=== PATIENT | female | born 1940 | race Caucasian/White ===

== ENCOUNTER → 2017-06-02 | Outpatient (CLI) | payer MEDICARE, BC ==
--- NOTE | 2017-06-02 18:09 | BD ---
EXAMINATION TYPE: MG DEXA axial skeleton. DATE OF EXAM: 06/02/2017 COMPARISON: 08/04/2013 CLINICAL HISTORY: 76-year-old female postmenopausal screening without HRT. Height: 65 IN Weight: 151 LBS FRAX RISK QUESTIONS: Alcohol (3 or more units per day): NO Family History (Parent hip fracture): NO Glucocorticoids (More than 3mos): NO (Ex: prednisone, prednisolone, methylprednisolone, dexamethasone, and hydrocortisone). History of Fracture in Adulthood: YES LEFT FOOT FX AGE 73 Secondary Osteoporosis: 1. Type 1 Diabetes: NO 2. Hyperthyroidism: NO 3. Menopause before 45: YES AGE 35 TOTAL HYST 4. Malnutrition: NO 5. Chronic liver disease: NO Rheumatoid Arthritis: NO Current Tobacco Use: NO RISK FACTORS HISTORY OF: Active: YES Diet low in dairy products/other sources of calcium: YES Postmenopausal woman: AGE 35 Take estrogen and/or progesterone medications: NOT NOW How long: ESTROGEN AGE 35 - 65 MEDICATIONS: Additional Medications: VIT D, CRESTOR, FENOFIBRATE, TRAMADOL, ASPIRIN, MULTI VIT, COLACE, LISINOPRIL EXAM MEASUREMENTS: Bone mineral densitometry was performed using the [employer] System. Bone mineral density as measured about the Lumbar spine is: ----- L1-L4(G/cm2): 0.987 T Score Values are as follows: ----- L2: -1.9 ----- L3: -1.5 ----- L4: -1.7 ----- L1-L4: -1.6 Bone mineral density has: Decreased -8.9% since study of: 08/04/2013 Bone mineral density about the R hip (g/cm2): 0.876 Bone mineral density about the L hip (g/cm2): 0.902 T Score values are as follows: -----R Neck: -1.2 -----L Neck: -1.0 -----R Total: -0.9 -----L Total: -1.1 Bone mineral density has: Decreased -7.2% since study of: 08/04/2013 IMPRESSION: Osteopenia (T Score between -2.5 and -1 as noted by T score values There is slightly increased risk of fracture and the patient may be considered for treatment. Re-Screen 2-5 years. NOTE: T-SCORE=SD OF THE YOUNG ADULT MEAN.
--- NOTE | 2017-06-03 11:26 | MM ---
Reason for exam: screening (asymptomatic). Last mammogram was performed 1 year and 2 months ago. History: Patient is postmenopausal. Family history of breast cancer in maternal cousin. Benign lumpectomy of the right breast, 2007. Took estrogen for 30 years beginning at age 35. Physical Findings: A clinical breast exam by your physician is recommended on an annual basis and results should be correlated with mammographic findings. MG 3D Screening Mammo W/Cad Bilateral CC and MLO view(s) were taken. Prior study comparison: April 10, 2016, bilateral MG 3d screening mammo w/cad. March 30, 2015, bilateral MG 3d diag mammo w/cad [facility]. There are scattered fibroglandular densities. Stable benign calcifications. There is no discrete abnormality. No significant changes when compared with prior studies. ASSESSMENT: Benign, BI-RAD 2 RECOMMENDATION: Routine screening mammogram of both breasts in 1 year.
== END | disposition home or self-care (01) ==
LOC: RADMAMWWP 14:58
PROVIDERS: ATTEND Family Medicine
DX: Z12.31 Encounter for screening mammogram for malignant neoplasm of breast (principal); M85.80 Other specified disorders of bone density and structure, unspecified site; Z78.0 Asymptomatic menopausal state
CPT/HCPCS: 77063; 77067; 77080

== ENCOUNTER 2017-07-06 11:17 | Emergency (ER) | payer MEDICARE, BC ==
[2017-07-06 11:29] VITALS: TEMP 97.7
[2017-07-06 12:27] LABS: Basophils % (A) 0 %; Eosinophils # (A) 0.1 k/uL (0-0.7); Eosinophils % (A) 3 %; HCT 36.5 % (34.0-46.0); HGB 12.5 gm/dL (11.4-16.0); Lymphocytes # (A) 1.2 k/uL (1.0-4.8); Lymphocytes % (A) 28 %; MCH 30.3 pg (25.0-35.0); MCHC 34.3 g/dL (31.0-37.0); MCV 88.4 fL (80.0-100.0); Mean Platelet Volume 6.9; Monocytes # (A) 0.2 k/uL (0-1.0); Monocytes % (A) 6 %; Neutrophils # (A) 2.6 k/uL (1.3-7.7); Neutrophils % (A) 61 %; Platelet Count 378 k/uL (150-450); RBC 4.13 m/uL (3.80-5.40); RDW 12.5 % (11.5-15.5); WBC 4.4 k/uL (3.8-10.6)
[2017-07-06 12:37] LABS: ALT 25 U/L (9-52); AST 27 U/L (14-36); Albumin 4.4 g/dL (3.5-5.0); Alkaline Phosphatase 33 U/L (38-126); Anion Gap 11 mmol/L; Blood Urea Nitrogen 22 mg/dL (7-17); Carbon Dioxide 26 mmol/L (22-30); Chloride 102 mmol/L (98-107); Glucose 142 mg/dL (74-99); Magnesium 1.9 mg/dL (1.6-2.3); Potassium 3.7 mmol/L (3.5-5.1); Sodium 139 mmol/L (137-145); Total Bilirubin 0.5 mg/dL (0.2-1.3); Total Protein 6.9 g/dL (6.3-8.2)
[2017-07-06 12:50] LABS: Creatine Kinase 49 U/L (30-135)
--- NOTE | 2017-07-06 12:53 | XR ---
EXAMINATION TYPE: XR chest 2V DATE OF EXAM: 07/06/2017 HISTORY: cough. REFERENCE: Previous study dated 05/24/2014. FINDINGS: The lungs are clear. Pleural spaces are clear. The heart is not enlarged. IMPRESSION: NO ACUTE INTRATHORACIC DISEASE.
[2017-07-06 13:03] LABS: Creatine Kinase MB 0.5 ng/mL (0.0-2.4); Troponin I <0.012 ng/mL (0.000-0.034)
[2017-07-06 13:50] LABS: Appearance,Urine Clear (Clear); Bilirubin,Urine Negative (Negative); Blood,Urine Negative (Negative); Color,Urine Light Yellow; Glucose,Urine (UA) Negative (Negative); Ketones,Urine Negative (Negative); Leukocyte Esterase,Urine Negative (Negative); Nitrite,Urine Negative (Negative); Protein,Urine Negative (Negative); Specific Gravity,Urine 1.008 (1.001-1.035); Urobilinogen,Urine <2.0 mg/dL (<2.0)
[2017-07-06] MEDS ORDERED: SODIUM CHLORIDE 0.9% 500 ML IV STA (13:53)
--- NOTE | 2017-07-06 13:59 | CT ---
EXAMINATION TYPE: CT brain wo con DATE OF EXAM: 07/06/2017 COMPARISON: NONE HISTORY: Hypertension CT DLP: 1121 mGycm Automated exposure control for dose reduction was used. FINDINGS: There are generalized changes of sulcal prominence and ventriculomegaly, compatible with mild atrophi c change. There is diffuse periventricular white matter lucency, compatible with chronic white matter ischemic change. There is no acute focal lesion, mass effect or midline shift identified. I do not s ee evidence of intracranial blood. Visualized portions of the paranasal sinuses and mastoids are clear. The bony calvarium is intact. 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 IMPRESSION: 1. NO ACUTE INTRACRANIAL ABNORMALITY. 2. ATROPHIC CHANGE. 3. CHRONIC WHITE MATTER ISCHEMIC CHANGE. 4. 1.6 CM P[place] REGION CYST.
--- NOTE | 2017-07-06 15:03 | ED ---
Recheck HPI - General Chief Complaint: Recheck/Abnormal Lab/Rx Stated Complaint: HYPERTENSION 157/107 Time Seen by Provider: 07/06/17 11:50 Source: patient, RN notes reviewed Mode of arrival: ambulatory Limitations: no limitations - History of Present Illness Initial Comments: This is a 77-year-old female history of hypertension states her blood pressure is been erratic or the past 2-3 days. She's been taking it and was seen in severity labile going up and going down. She has been taking increased doses of her medication. She also states she's been under a lot of stress lately. She denies any overt chest pain fevers chills nausea vomiting sweats or other symptoms upon arrival was noted to be improved - Related Data Home Medications Medication Instructions Recorded Confirmed Aspirin 81 mg PO DAILY 01/12/14 07/06/17 Docusate [Colace] 200 mg PO DAILY 01/12/14 07/06/17 Fenofibrate [Lofibra] 160 mg PO DAILY 01/12/14 07/06/17 Lisinopril [Zestril] 40 mg PO BID 01/12/14 07/06/17 Multivitamins, Thera [Multivitamin 1 tab PO DAILY 01/12/14 07/06/17 (formulary)] traMADol HCl [Ultram] 50 mg PO Q6H 01/12/14 07/06/17 Cholecalciferol [Vitamin D3] 1,000 unit PO DAILY 07/06/17 07/06/17 Hydrochlorothiazide [Hydrodiuril] 12.5 mg PO DAILY 07/06/17 07/06/17 Omeprazole 20 mg PO DAILY 07/06/17 07/06/17 Polyethylene Glycol 3350 [Miralax] 17 gm PO DAILY 07/06/17 07/06/17 Ubidecarenone [Co Q-10] 100 mg PO DAILY 07/06/17 07/06/17 Allergies Allergy/AdvReac Type Severity Reaction Status Date / Time gabapentin [From Neurontin] Allergy Confusion Verified 07/06/17 12:01 Sulfa (Sulfonamide Allergy Rash/Hives Verified 07/06/17 12:01 Antibiotics) adhesive micropore tape AdvReac blisters Uncoded 07/06/17 11:29 Review of Systems ROS Statement: Those systems with pertinent positive or pertinent negative responses have been documented in the HPI. ROS Other: All systems not noted in ROS Statement are negative. Past Medical History Past Medical History: Hyperlipidemia, Hypertension Additional Past Medical History / Comment(s): hx migraines frm hormone therapy, occ palpitations, diverticulosis, anemia History of Any Multi-Drug Resistant Organisms: None Reported Past Surgical History: Appendectomy, Back Surgery, Cholecystectomy, Hysterectomy , Tonsillectomy Additional Past Surgical History / Comment(s): adhesion repair, detached retina left eye, breast benign tumor, Past Anesthesia/Blood Transfusion Reactions: Motion Sickness Additional Past Anesthesia/Blood Transfusion Reaction / Comment(s): diff waking up, limitations in turning head to the left -pt states has had general anesthesia and no diff intubation Past Psychological History: Anxiety Smoking Status: Former smoker Past Alcohol Use History: Occasional Past Drug Use History: None Reported - Past Family History Mother Family Medical History: Cancer Brother(s) Family Medical History: Deep Vein Thrombosis (DVT) General Exam - General Exam Comments Initial Comments: This is a well-developed well-nourished awake alert oriented 3 Limitations: no limitations General appearance: alert, anxious Head exam: Present: atraumatic, normocephalic, normal inspection Eye exam: Present: normal appearance, PERRL, EOMI. Absent: scleral icterus, conjunctival injection, periorbital swelling ENT exam: Present: mucous membranes dry Neck exam: Present: normal inspection. Absent: tenderness, meningismus, lymphadenopathy Respiratory exam: Present: normal lung sounds bilaterally. Absent: respiratory distress, wheezes, rales, rhonchi, stridor Cardiovascular Exam: Present: regular rate, normal rhythm, normal heart sounds. Absent: systolic murmur, diastolic murmur, rubs, gallop, clicks GI/Abdominal exam: Present: soft, normal bowel sounds. Absent: distended, tenderness, guarding, rebound, rigid Extremities exam: Present: normal inspection, full ROM, normal capillary refill. Absent: tenderness, pedal edema, joint swelling, calf tenderness Back exam: Present: normal inspection Neurological exam: Present: alert, oriented X3, CN II-XII intact Psychiatric exam: Present: normal affect, anxious Skin exam: Present: warm, dry, intact, normal color. Absent: rash Course Vital Signs 07/06/17 07/06/17 07/06/17 11:25 11:50 13:19 Temperature 97.7 F Pulse Rate 99 82 71 Respiratory 18 18 Rate Blood Pressure 207/89 149/73 130/61 O2 Sat by Pulse 98 95 95 Oximetry Medical Decision Making - Medical Decision Making I did discuss findings with patient and her patient will be discharge her blood pressure is normalized she does demonstrate evidence of dehydration as well as anxiety. She is a follow-up with her doctor return when necessary I did caution her about changing her medication dosing on her own. - Lab Data Result diagrams: 07/06/17 12:00 07/06/17 12:00 Lab Results 07/06/17 07/06/17 07/06/17 Range/Units 12:00 12:00 12:00 WBC 4.4 (3.8-10.6) k/uL RBC 4.13 (3.80-5.40) m/uL Hgb 12.5 (11.4-16.0) gm/dL Hct 36.5 (34.0-46.0) % MCV 88.4 (80.0-100.0) fL MCH 30.3 (25.0-35.0) pg MCHC 34.3 (31.0-37.0) g/dL RDW 12.5 (11.5-15.5) % Plt Count 378 (150-450) k/uL Neutrophils % 61 % Lymphocytes % 28 % Monocytes % 6 % Eosinophils % 3 % Basophils % 0 % Neutrophils # 2.6 (1.3-7.7) k/uL Lymphocytes # 1.2 (1.0-4.8) k/uL Monocytes # 0.2 (0-1.0) k/uL Eosinophils # 0.1 (0-0.7) k/uL Basophils # 0.0 (0-0.2) k/uL Sodium 139 (137-145) mmol/L Potassium 3.7 (3.5-5.1) mmol/L Chloride 102 (98-107) mmol/L Carbon Dioxide 26 (22-30) mmol/L Anion Gap 11 mmol/L BUN 22 H (7-17) mg/dL Creatinine 0.70 (0.52-1.04) mg/dL Est GFR (CKD-EPI)AfAm >90 (>60 ml/min/1.73 sqM) Est GFR (CKD-EPI)NonAf 84 (>60 ml/min/1.73 sqM) Glucose 142 H (74-99) mg/dL Calcium 10.0 (8.4-10.2) mg/dL Magnesium 1.9 (1.6-2.3) mg/dL Total Bilirubin 0.5 (0.2-1.3) mg/dL AST 27 (14-36) U/L ALT 25 (9-52) U/L Alkaline Phosphatase 33 L (38-126) U/L Total Creatine Kinase 49 (30-135) U/L CK-MB (CK-2) 0.5 (0.0-2.4) ng/mL CK-MB (CK-2) Rel Index 1.0 Troponin I <0.012 (0.000-0.034) ng/mL Total Protein 6.9 (6.3-8.2) g/dL Albumin 4.4 (3.5-5.0) g/dL TSH 1.980 (0.465-4.680) mIU/L Urine Color Urine Appearance (Clear) Urine pH (5.0-8.0) Ur Specific [place] (1.001-1.035) Urine Protein (Negative) Urine Glucose (UA) (Negative) Urine Ketones (Negative) Urine Blood (Negative) Urine Nitrite (Negative) Urine Bilirubin (Negative) Urine Urobilinogen (<2.0) mg/dL Ur Leukocyte Esterase (Negative) 07/06/17 Range/Units 13:12 WBC (3.8-10.6) k/uL RBC (3.80-5.40) m/uL Hgb (11.4-16.0) gm/dL Hct (34.0-46.0) % MCV (80.0-100.0) fL MCH (25.0-35.0) pg MCHC (31.0-37.0) g/dL RDW (11.5-15.5) % Plt Count (150-450) k/uL Neutrophils % % Lymphocytes % % Monocytes % % Eosinophils % % Basophils % % Neutrophils # (1.3-7.7) k/uL Lymphocytes # (1.0-4.8) k/uL Monocytes # (0-1.0) k/uL Eosinophils # (0-0.7) k/uL Basophils # (0-0.2) k/uL Sodium (137-145) mmol/L Potassium (3.5-5.1) mmol/L Chloride (98-107) mmol/L Carbon Dioxide (22-30) mmol/L Anion Gap mmol/L BUN (7-17) mg/dL Creatinine (0.52-1.04) mg/dL Est GFR (CKD-EPI)AfAm (>60 ml/min/1.73 sqM) Est GFR (CKD-EPI)NonAf (>60 ml/min/1.73 sqM) Glucose (74-99) mg/dL Calcium (8.4-10.2) mg/dL Magnesium (1.6-2.3) mg/dL Total Bilirubin (0.2-1.3) mg/dL AST (14-36) U/L ALT (9-52) U/L Alkaline Phosphatase (38-126) U/L Total Creatine Kinase (30-135) U/L CK-MB (CK-2) (0.0-2.4) ng/mL CK-MB (CK-2) Rel Index Troponin I (0.000-0.034) ng/mL Total Protein (6.3-8.2) g/dL Albumin (3.5-5.0) g/dL TSH (0.465-4.680) mIU/L Urine Color Light Yellow Urine Appearance Clear (Clear) Urine pH 7.0 (5.0-8.0) Ur Specific [place] 1.008 (1.001-1.035) Urine Protein Negative (Negative) Urine Glucose (UA) Negative (Negative) Urine Ketones Negative (Negative) Urine Blood Negative (Negative) Urine Nitrite Negative (Negative) Urine Bilirubin Negative (Negative) Urine Urobilinogen <2.0 (<2.0) mg/dL Ur Leukocyte Esterase Negative (Negative) - EKG Data -: EKG Interpreted by Hi EKG shows normal: sinus rhythm (Sinus rhythm rate is 79. Interval 150 to QRS 90 QT since QTC of 396/[address]-T wave configuration) - Radiology Data Radiology results: report reviewed (I did review the imaging and report no acute findings.), image reviewed Disposition Clinical Impression: Hypertension, Dehydration Disposition: HOME SELF-CARE Condition: Good Instructions: Hypertension (ED), Dehydration (ED) Referrals: Rocio Carroll MD [Primary Care Provider] - 1-2 days
[2017-07-06 15:37] VITALS: BP 157/73; PULSE 65; RESP 16
== END 2017-07-06 15:37 | disposition home or self-care (01) ==
LOC: EC 11:17
DX: I10 Essential (primary) hypertension (principal); E86.0 Dehydration; E78.5 Hyperlipidemia, unspecified; Z87.891 Personal history of nicotine dependence; Z79.82 Long term (current) use of aspirin; Z79.899 Other long term (current) drug therapy; Z88.8 Allergy status to other drugs, medicaments and biological substances; Z88.2 Allergy status to sulfonamides; Z91.048 Other nonmedicinal substance allergy status
CPT/HCPCS: 36415; 70450; 71046; 80053; 81003; 82550; 82553; 83735; 84443; 84484; 85025; 93005; 96360; 96361; 99284

== ENCOUNTER → 2018-10-01 | Outpatient (CLI) | payer MEDICARE, BC ==
[2018-10-01 14:44] LABS: African American GFR (CKD) >90 (>60 ml/min/1.73 sqM); Blood Urea Nitrogen 20 mg/dL (7-17)
--- NOTE | 2018-10-01 16:50 | CT ---
EXAMINATION TYPE: CT abdomen pelvis w con DATE OF EXAM: 10/01/2018 COMPARISON: None HISTORY: Abdominal pain. CT DLP: 1250 mGycm Automated exposure control for dose reduction was used. TECHNIQUE: Helical acquisition of images was performed from the lung bases through the pelvis. CONTRAST: Performed with Oral Contrast and with IV Contrast, patient injected with 100ml mL of Isovue 300. FINDINGS: Lung bases are clear. There is no pleural effusion. There is no pericardial effusion. Heart size is f airly normal. There are clips from cholecystectomy. Liver spleen pancreas appear normal. Bile ducts are not dilated . Stomach appears normal. There is no evidence of pancreatic mass. There is no adrenal mass. Kidneys have normal size. There is 2 mm calculus upper pole left kidney. Th ere is 5 mm calculus lower pole right kidney. There is 3 cm cortical cyst upper pole left kidney. The re is no retroperitoneal adenopathy. Bladder distends smoothly. There is no inguinal hernia. There is no free fluid in the pelvis. There is no sign of a pelvic mass. There is no mesenteric edema. Appendix is not seen. There is no sign of thickened appendix. Lumbar ve rtebra have normal alignment. There is narrowing of L5-S1 disc space. Bony pelvis is intact. There is no evidence of a bowel obstruction. I see no intestinal wall thickening. There is no ascites. There is no sign of free air. IMPRESSION: NONOBSTRUCTING RENAL CALCULI. NO SIGN OF ACUTE ABDOMEN AND PELVIS.
== END | disposition home or self-care (01) ==
LOC: RADCTMAIN 13:54
PROVIDERS: ATTEND Family Medicine
DX: N20.0 Calculus of kidney (principal)
CPT/HCPCS: 82565; 84520; 74177; 36415; Q9967

== ENCOUNTER 2019-03-21 20:34 | Inpatient (IN) | payer MEDICARE, BC ==
[2019-03-21] MEDS ORDERED: IPRATROPIUM-ALBUTEROL 3 ML NEB INHALATION STA (21:43)
[2019-03-21] MEDS ORDERED: predniSONE 20 MG TAB PO STA (21:43)
--- NOTE | 2019-03-21 21:49 | ED ---
General Adult HPI - General Chief complaint: Recheck/Abnormal Lab/Rx Stated complaint: Cough Time Seen by Provider: 03/21/19 21:08 Source: patient Mode of arrival: EMS Limitations: no limitations - History of Present Illness Initial comments: This patient is 78-year-old woman who presents to be evaluated for cough. She states she has had a few days of the cough which is large and nonproductive, but that it worsened tonight. She states that she had approximately 30-40 minute episode of more or less continuous coughing. She did take some Robitussin-DM to help with the symptoms. She then became concerned because for a brief period of time she was having trouble with memory. She states that most of the memory has returned. I did seem to be mostly in the period shortly after taking the medication. She was not having any change in vision, speech or swallowing. No weakness or numbness. No loss of consciousness. Patient denies pain other than a little bit of substernal burning associated with the coughing episode. -: hour(s) Consistency: other (Improved) Improves with: medication Worsens with: none Associated Symptoms: cough Treatments Prior to Arrival: other (Robitussin-DM) - Related Data Home Medications Medication Instructions Recorded Confirmed Aspirin 81 mg PO DAILY 01/12/14 05/21/18 Docusate [Colace] 200 mg PO DAILY 01/12/14 05/21/18 Fenofibrate [Lofibra] 160 mg PO DAILY 01/12/14 05/21/18 Lisinopril [Zestril] 20 mg PO DAILY 01/12/14 05/21/18 Multivitamins, Thera [Multivitamin 1 tab PO DAILY 01/12/14 05/21/18 (formulary)] traMADol HCl [Ultram] 50 mg PO Q8H 01/12/14 05/21/18 Cholecalciferol [Vitamin D3] 1,000 unit PO DAILY 07/06/17 05/21/18 Hydrochlorothiazide [Hydrodiuril] 12.5 mg PO DAILY PRN 07/06/17 05/21/18 Omeprazole 20 mg PO DAILY 07/06/17 05/21/18 Polyethylene Glycol 3350 [Miralax] 17 gm PO DAILY 07/06/17 05/21/18 Citalopram Hydrobromide 10 mg PO DAILY 05/21/18 05/21/18 [Citalopram HBr] Dicyclomine [Bentyl] 10 mg PO TID PRN 05/21/18 05/21/18 Metoprolol Succinate (ER) [Toprol 25 mg PO DAILY 05/21/18 05/21/18 Xl] Ranitidine HCl [Zantac] 150 mg PO HS 05/21/18 05/21/18 Rosuvastatin [Crestor] 10 mg PO HS 05/21/18 05/21/18 Vitamin B Complex 1 each PO DAILY 05/21/18 05/21/18 amLODIPine [Norvasc] 5 mg PO HS 05/21/18 05/21/18 Allergies Allergy/AdvReac Type Severity Reaction Status Date / Time gabapentin [From Neurontin] Allergy Confusion Verified 03/21/19 20:46 Sulfa (Sulfonamide Allergy Rash/Hives Verified 03/21/19 20:46 Antibiotics) codeine AdvReac Nausea Verified 03/21/19 20:46 adhesive micropore tape AdvReac blisters Uncoded 03/21/19 20:46 Review of Systems ROS Statement: Those systems with pertinent positive or pertinent negative responses have been documented in the HPI. ROS Other: All systems not noted in ROS Statement are negative. Constitutional: Denies: fever, chills, weakness Eyes: Denies: vision change ENT: Reports: congestion. Denies: throat pain Respiratory: Reports: cough, wheezes. Denies: dyspnea, hemoptysis Cardiovascular: Denies: chest pain, palpitations, orthopnea, edema, syncope Gastrointestinal: Denies: abdominal pain, nausea, vomiting Genitourinary: Denies: dysuria, hematuria Musculoskeletal: Denies: back pain Skin: Denies: rash Neurological: Denies: headache Past Medical History Past Medical History: GERD/Reflux, Hyperlipidemia, Hypertension Additional Past Medical History / Comment(s): occ palpitations, diverticulosis, hx. anemia History of Any Multi-Drug Resistant Organisms: None Reported Past Surgical History: Appendectomy, Back Surgery, Breast Surgery, Cholecystectomy, Hysterectomy, Tonsillectomy Additional Past Surgical History / Comment(s): lysis of adhesion, detached retina left eye, breast benign tumor, cataracts removed Past Anesthesia/Blood Transfusion Reactions: Previous Problems w/ Anesthesia, Motion Sickness Additional Past Anesthesia/Blood Transfusion Reaction / Comment(s): diff waking up, limitations in turning head to the left -pt states has had general anesthesia and no diff intubation Past Psychological History: Anxiety Smoking Status: Former smoker Past Alcohol Use History: Occasional Past Drug Use History: None Reported - Past Family History Mother Family Medical History: Cancer Brother(s) Family Medical History: Deep Vein Thrombosis (DVT) General Exam Limitations: no limitations General appearance: alert, in no apparent distress Head exam: Present: atraumatic, normocephalic Eye exam: Present: normal appearance. Absent: scleral icterus, conjunctival injection ENT exam: Present: normal oropharynx Respiratory exam: Present: wheezes. Absent: respiratory distress, rales, rhonchi, stridor, chest wall tenderness, accessory muscle use, decreased breath sounds Cardiovascular Exam: Present: regular rate, normal rhythm, normal heart sounds. Absent: systolic murmur, diastolic murmur, rubs, gallop GI/Abdominal exam: Present: soft. Absent: distended, tenderness, guarding, rebound, rigid, mass Extremities exam: Present: normal inspection, normal capillary refill. Absent: pedal edema, calf tenderness Back exam: Present: normal inspection. Absent: CVA tenderness (R), CVA tendern ess (L) Neurological exam: Present: alert, oriented X3, CN II-XII intact, normal gait Skin exam: Present: warm, dry, intact, normal color. Absent: rash Course Vital Signs 03/21/19 03/21/19 03/21/19 20:37 22:08 22:13 Temperature 98.1 F Pulse Rate 64 61 65 Respiratory 18 Rate Blood Pressure 145/75 O2 Sat by Pulse 96 Oximetry EKG Findings - EKG Results: EKG: interpreted by ADIEL RANGEL, sinus rhythm (Rate 61 bpm), normal axis, normal QRS, normal ST/T, no acute changes - NC, Pacemaker, Normal: Normal tracing: normal tracing Medical Decision Making - Medical Decision Making This patient is 78-year-old woman presenting with coughing episode. The exam consistent with COPD/asthma exacerbation. The patient does have a minimally elevated troponin, and will admit to have serial cardiac enzymes and telemetry monitoring. She is not currently having any chest symptoms other than occasional cough. ECG normal. - Lab Data Result diagrams: 03/21/19 21:30 03/21/19 21:30 Lab Results 12/05/0903/21/19 03/21/19 Range/Units 21:30 21:30 21:30 WBC 3.8 (3.8-10.6) k/uL RBC 3.57 L (3.80-5.40) m/uL Hgb 11.3 L (11.4-16.0) gm/dL Hct 32.7 L (34.0-46.0) % MCV 91.7 (80.0-100.0) fL MCH 31.6 (25.0-35.0) pg MCHC 34.4 (31.0-37.0) g/dL RDW 12.6 (11.5-15.5) % Plt Count 394 (150-450) k/uL Neutrophils % 47 % Lymphocytes % 44 % Monocytes % 7 % Eosinophils % 0 % Basophils % 0 % Neutrophils # 1.8 (1.3-7.7) k/uL Lymphocytes # 1.7 (1.0-4.8) k/uL Monocytes # 0.3 (0-1.0) k/uL Eosinophils # 0.0 (0-0.7) k/uL Basophils # 0.0 (0-0.2) k/uL PT 10.3 (9.0-12.0) sec INR 1.0 (<1.2) APTT 23.4 (22.0-30.0) sec Sodium 137 (137-145) mmol/L Potassium 3.9 (3.5-5.1) mmol/L Chloride 106 (98-107) mmol/L Carbon Dioxide 22 (22-30) mmol/L Anion Gap 9 mmol/L BUN 18 H (7-17) mg/dL Creatinine 0.66 (0.52-1.04) mg/dL Est GFR (CKD-EPI)AfAm >90 (>60 ml/min/1.73 sqM) Est GFR (CKD-EPI)NonAf 85 (>60 ml/min/1.73 sqM) Glucose 126 H (74-99) mg/dL Calcium 9.2 (8.4-10.2) mg/dL Total Bilirubin 0.4 (0.2-1.3) mg/dL AST 27 (14-36) U/L ALT 24 (9-52) U/L Alkaline Phosphatase 35 L (38-126) U/L Troponin I (0.000-0.034) ng/mL NT-Pro-B Natriuret Pep pg/mL Total Protein 5.9 L (6.3-8.2) g/dL Albumin 3.7 (3.5-5.0) g/dL 03/21/19 03/21/19 Range/Units 21:30 21:30 WBC (3.8-10.6) k/uL RBC (3.80-5.40) m/uL Hgb (11.4-16.0) gm/dL Hct (34.0-46.0) % MCV (80.0-100.0) fL MCH (25.0-35.0) pg MCHC (31.0-37.0) g/dL RDW (11.5-15.5) % Plt Count (150-450) k/uL Neutrophils % % Lymphocytes % % Monocytes % % Eosinophils % % Basophils % % Neutrophils # (1.3-7.7) k/uL Lymphocytes # (1.0-4.8) k/uL Monocytes # (0-1.0) k/uL Eosinophils # (0-0.7) k/uL Basophils # (0-0.2) k/uL PT (9.0-12.0) sec INR (<1.2) APTT (22.0-30.0) sec Sodium (137-145) mmol/L Potassium (3.5-5.1) mmol/L Chloride (98-107) mmol/L Carbon Dioxide (22-30) mmol/L Anion Gap mmol/L BUN (7-17) mg/dL Creatinine (0.52-1.04) mg/dL Est GFR (CKD-EPI)AfAm (>60 ml/min/1.73 sqM) Est GFR (CKD-EPI)NonAf (>60 ml/min/1.73 sqM) Glucose (74-99) mg/dL Calcium (8.4-10.2) mg/dL Total Bilirubin (0.2-1.3) mg/dL AST (14-36) U/L ALT (9-52) U/L Alkaline Phosphatase (38-126) U/L Troponin I 0.076 H* (0.000-0.034) ng/mL NT-Pro-B Natriuret Pep 369 pg/mL Total Protein (6.3-8.2) g/dL Albumin (3.5-5.0) g/dL Disposition Clinical Impression: COPD exacerbation, Troponin level elevated Disposition: ADMITTED IP TO THIS HOSP Condition: Good Is patient prescribed a controlled substance at d/c from ED?: No Referrals: Rocio Carroll MD [Primary Care Provider] - 1-2 days
[2019-03-21 21:50] LABS: Basophils % (A) 0 %; Eosinophils % (A) 0 %; HCT 32.7 % (34.0-46.0); HGB 11.3 gm/dL (11.4-16.0); Lymphocytes # (A) 1.7 k/uL (1.0-4.8); Lymphocytes % (A) 44 %; MCH 31.6 pg (25.0-35.0); MCHC 34.4 g/dL (31.0-37.0); MCV 91.7 fL (80.0-100.0); Mean Platelet Volume 5.7; Monocytes # (A) 0.3 k/uL (0-1.0); Monocytes % (A) 7 %; Neutrophils # (A) 1.8 k/uL (1.3-7.7); Neutrophils % (A) 47 %; Platelet Count 394 k/uL (150-450); RBC 3.57 m/uL (3.80-5.40); RDW 12.6 % (11.5-15.5); WBC 3.8 k/uL (3.8-10.6)
--- NOTE | 2019-03-21 21:54 | XR ---
EXAMINATION TYPE: XR chest 2V DATE OF EXAM: 03/21/2019 COMPARISON: 07/06/2017 HISTORY: Cough. Short of breath. TECHNIQUE: Frontal and lateral views of the chest are obtained. FINDINGS: Heart and mediastinum are normal. Lungs are clear. Diaphragm is normal. Bony thorax appear s normal. IMPRESSION: Normal chest. No change.
[2019-03-21 22:00] LABS: ALT 24 U/L (9-52); AST 27 U/L (14-36); African American GFR (CKD) >90 (>60 ml/min/1.73 sqM); Albumin 3.7 g/dL (3.5-5.0); Alkaline Phosphatase 35 U/L (38-126); Anion Gap 9 mmol/L; Blood Urea Nitrogen 18 mg/dL (7-17); Calcium 9.2 mg/dL (8.4-10.2); Carbon Dioxide 22 mmol/L (22-30); Chloride 106 mmol/L (98-107); Glucose 126 mg/dL (74-99); Non-African American GFR(CKD) 85 (>60 ml/min/1.73 sqM); Partial Thromboplastin Time 23.4 sec (22.0-30.0); Potassium 3.9 mmol/L (3.5-5.1); Prothrombin Time 10.3 sec (9.0-12.0); Sodium 137 mmol/L (137-145); Total Bilirubin 0.4 mg/dL (0.2-1.3); Total Protein 5.9 g/dL (6.3-8.2)
[2019-03-21] MEDS ORDERED: ALBUTEROL NEBULIZED 2.5 MG/3 ML INHALATION PRN (22:47)
[2019-03-21] MEDS ORDERED: ASPIRIN 81 MG PO STA (23:01)
[2019-03-21] MEDS ORDERED: HYDROCHLOROTHIAZIDE 12.5 MG CAP PO PRN (23:02)
[2019-03-22] MEDS: SODIUM CHLORIDE 0.9% 1,000 ML IV SCH ×2 (00:32→23:31)
[2019-03-22] MEDS: CITALOPRAM HYDROBROMIDE 10 MG TAB PO SCH ×2 (00:36→21:36)
[2019-03-22] MEDS: amLODIPine 5 MG TAB PO SCH ×2 (00:36→21:36)
[2019-03-22] MEDS: traMADol 50 MG TAB PO SCH ×4 (00:37→23:30)
[2019-03-22] MEDS: LISINOPRIL 20 MG TAB PO SCH ×2 (00:38→21:36)
[2019-03-22] MEDS: IPRATROPIUM-ALBUTEROL 3 ML NEB INHALATION SCH ×4 (07:50→20:22)
[2019-03-22] MEDS: METOPROLOL SUCCINATE (ER) 25 MG TAB.ER.24H PO SCH (08:33)
[2019-03-22] MEDS: FENOFIBRATE 160 MG TAB PO SCH (08:33)
[2019-03-22] MEDS: MULTIVITAMINS, THERA 1 EACH TAB PO SCH (08:33)
[2019-03-22] MEDS: PANTOPRAZOLE 40 MG TABLET PO SCH (08:33)
[2019-03-22] MEDS: AZITHROMYCIN 500 MG TAB PO SCH (08:33)
[2019-03-22] MEDS: POLYETHYLENE GLYCOL 3350 17 GM POWD.PACK PO SCH ×2 (08:34→08:39)
[2019-03-22] MEDS ORDERED: ASPIRIN 81 MG PO SCH (09:00)
[2019-03-22] MEDS ORDERED: LISINOPRIL 20 MG TAB PO SCH (09:00)
[2019-03-22] MEDS ORDERED: CITALOPRAM HYDROBROMIDE 10 MG TAB PO SCH (09:00)
[2019-03-22] MEDS ORDERED: DICYCLOMINE 10 MG CAP PO PRN (09:00)
[2019-03-22] MEDS ORDERED: predniSONE 20 MG TAB PO SCH (09:00)
[2019-03-22] MEDS ORDERED: DOCUSATE 100 MG CAP PO SCH (09:00)
[2019-03-22] MEDS: ATORVASTATIN 20 MG TAB PO SCH (11:04)
--- NOTE | 2019-03-22 11:25 | CONS ---
CONSULTATION Mrs. Howard is a 78-year-old female, retired ICU nurse who is followed by Dr. Logan and presented with cough. She has been having cough for the last few days, much worse yesterday, nonproductive with no fever. Because of the persistence cough and the severity, she came into the emergency room, subsequently admitted. The patient has a known history of aortic regurgitation, hypertension, and hyperlipidemia. She is a nonsmoker, nondiabetic. She is active physically, walks about 10,000 steps a day, had no associated exertional chest discomfort. Her breathing has been stable. She has rare peripheral edema on the left side. She has no PND, no orthopnea. No dizziness. She has some dizziness change in position and occasional palpitation that are not persistent. MEDICATION: Her medications at home include fenofibrate, Bentyl, vitamin D, HydroDIURIL 12.5 mg as needed, aspirin 81 mg daily, Crestor 10 mg daily, Zestril 20 mg daily, citalopram, omeprazole 20 mg daily, metoprolol succinate 25 mg daily, amlodipine 5 mg daily. REVIEW OF SYSTEMS: RESPIRATORY SYSTEM: She has a cough, history of possible asthma, was started on Singulair recently. No fever. GI SYSTEM: No recent GI bleed. No peptic ulcer disease. SYSTEM: No dysuria or hematuria. NERVOUS SYSTEM: No stroke or seizure. PHYSICAL EXAMINATION: She is a 78-year-old female, alert, oriented, in no apparent distress. Blood pressure 140/60 with a heart rate in the 80s. HEAD: Normocephalic. EYES: Sclerae nonicteric. NECK: Good upstroke, no bruit, no venous distention. LUNGS: Clear to auscultation. HEART: Regular rate and rhythm, S1, S2. No S3 with systolic murmur and early diastolic murmur heard at the base. No rub or gallop. ABDOMEN: Soft, nontender, positive bowel sounds, no organomegaly. EXTREMITIES: No edema, intact pulses. LAB DATA: Revealed a hemoglobin of 11.3, troponin 0.076, 0.076 for 2 samples. BUN and creatinine 18 and 0.66. Potassium 3.9. NT proBNP of 369. Her EKG revealed a sinus mechanism, normal axis and intervals, normal electrocardiogram. Chest x-ray shows no acute infiltrate. IMPRESSION: 1. Persistent cough, probably related to bronchitis. No evidence to suggest pneumonia. 2. Troponin elevation, not consistent with acute coronary artery syndrome. 3. History of hypertension. 4. Hyperlipidemia. 5. History of aortic regurgitation. RECOMMENDATION: Patient will continue on present therapy. She was started on antibiotics and prednisone. I will obtain an echocardiogram with Doppler and depending on her progress, further recommendation will be made. Thank you for this consult. Will follow with you. TONYL / IJN: [id number] /
--- NOTE | 2019-03-22 11:27 | ECHOF ---
Referral Reason:AI MEASUREMENTS -------- HEIGHT: 165.1 cm WEIGHT: 69.4 kg BP: 140/68 RVIDd: 3.2 cm (< 3.3) IVSd: 1.2 cm (0.6 - 1.1) LVIDd: 4.7 cm (3.9 - 5.3) LVPWd: 1.3 cm (0.6 - 1.1) IVSs: 1.7 cm LVIDs: 3.2 cm LVPWs: 1.9 cm LAESV Index (A-L): 41.10 ml/m Ao Diam: 3.6 cm (2.0 - 3.7) AV Cusp: 2.3 cm (1.5 - 2.6) LA Diam: 4.2 cm (2.7 - 3.8) MV EXCURSION: 14.924 mm (> 18.000) MV EF SLOPE: 41 mm/s (70 - 150) EPSS: 0.3 cm MV E Raphael: 0.71 m/s MV DecT: 182 ms MV A Raphael: 0.83 m/s MV E/A Ratio: 0.85 AR PHT: 556 ms RAP: 5.00 mmHg RVSP: 47.79 mmHg FINDINGS -------- Sinus rhythm. This was a technically adequate study. The left ventricular size is normal. There is mild concentric left ventricular hypertrophy. Overa ll left ventricular systolic function is normal with, an EF between 60 - 65 %. Both the mean atrial pressure as well as the LV end diastolic pressure is elevated 10.01. The right ventricle is normal in size. LA is moderately dilated 34-39 ml/m2 The right atrium is mildly enlarged. Interatrial and interventricular septum intact. The aortic valve is trileaflet and appears structurally normal. There is wlji-iv-rtojnuaa aortic re gurgitation. There is no evidence of aortic stenosis. Mild mitral regurgitation is present. [id number] tricuspid regurgitation present. There is mild to moderate pulmonary hypertension. The right ventricular systolic pressure, as measured by Doppler, is 47.79mmHg. There is no pulmonic regurgitation present. The aortic root size is normal. The inferior vena cava is mildly dilated. There is no pericardial effusion. CONCLUSIONS -------- 1. Sinus rhythm. 2. This was a technically adequate study. 3. The left ventricular size is normal. 4. There is mild concentric left ventricular hypertrophy. 5. Overall left ventricular systolic function is normal with, an EF between 60 - 65 %. 6. Both the mean atrial pressure as well as the LV end diastolic pressure is elevated 10.01. 7. The right ventricle is normal in size. 8. LA is moderately dilated 34-39 ml/m2 9. The right atrium is mildly enlarged. 10. Interatrial and interventricular septum intact. 11. The aortic valve is trileaflet and appears structurally normal. 12. There is xmwq-ol-gmjudjnl aortic regurgitation. 13. There is no evidence of aortic stenosis. 14. Mild mitral regurgitation is present. 15. Kfjx-zt-qhrwsjvn tricuspid regurgitation present. 16. There is mild to moderate pulmonary hypertension. 17. The right ventricular systolic pressure, as measured by Doppler, is 47.79mmHg. 18. There is no pulmonic regurgitation present. 19. The aortic root size is normal. 20. The inferior vena cava is mildly dilated. 21. There is no pericardial effusion. VETERINARY PRACTITIONER: Carie Carl RDCS
[2019-03-22] MEDS: BENZONATATE 100 MG CAP PO PRN (15:39)
--- NOTE | 2019-03-22 16:34 | P.CNPUL ---
History of Present Illness Consult date: 03/22/19 Reason for consult: cough Chief complaint: severe cough History of present illness: this is a 78-year-old female remote history of smoking, [id number] history of smoking until she was 30 years old. Quit at age 30, patient had no previous history of documented COPD, no history of asthma, however few years back she was seen by her primary care physician and she was wheezing at the time. Patient was placed on Singulair and albuterol, however she hardly ever takes these medications. Patient presented to the ER with 1 week history of cough, cough is dry hacking cough, nonproductive, was significantly worse last night. Patient also had other symptoms suggestive of acute URI including nasal congestion, pressure and fullness over the years, sore throat, cough, chest tightness, and her cough was so severe last night to the point that she coughed for about 45 minutes straight and to the point of vomiting. Patient was given Robitussin-DM by her , and there was some relief. She came into the ER today, chest x- ray showed no evidence of infiltrate, however considering the severity of her symptoms and her persistent cough, patient was admitted and this consult was initiated. Patient denies any fever or chills, denies any hemoptysis, denies any abdominal pain, melena or hematemesis. She did have one episode of vomiting from severe cough. According to the she develops this cough almost on a yearly basis and whenever she gets an upper respiratory tract infection, her symptoms sort of linger for a long period of time before she recovers fully. Again she was never truly diagnosed with asthma or COPD. But considering her symptoms the patient may have underlying asthma. Chest x-ray again on admission showed no evidence of infiltrate. Patient has occasional GERD, usually well controlled with omeprazole, she has been on lisinopril for at least 2 years, does not seem to be a factor in her intermittent episodes of cough. Review of Systems Constitutional: denies fever chills or weight loss. Denies major constitutional symptoms. Eyes: denies any blurred vision, denies any diplopia ENT: as noted in HPI, patient had symptoms of URI for one week. Respiratory: as noted in HPI. Cardiovascular: denies any chest pain palpitations or syncope. Gastrointestinal:had one episode of vomiting related to severe cough, otherwise no GI symptoms. Genitourinary: denies dysuria frequency urgency or hematuria. Musculoskeletal: Denies: back pain Skin: denies rashes or pruritus. Neurological: denies headache, denies any syncope. Denies any neurological symptoms. Past Medical History Past Medical History: GERD/Reflux, Hyperlipidemia, Hypertension Additional Past Medical History / Comment(s): occ palpitations, diverticulosis, hx. anemia History of Any Multi-Drug Resistant Organisms: None Reported Past Surgical History: Appendectomy, Back Surgery, Breast Surgery, Cholecystectomy, Hysterectomy, Tonsillectomy Additional Past Surgical History / Comment(s): lysis of adhesion, detached retina left eye, breast benign tumor, cataracts removed Past Anesthesia/Blood Transfusion Reactions: Previous Problems w/ Anesthesia, Motion Sickness Additional Past Anesthesia/Blood Transfusion Reaction / Comment(s): diff waking up, limitations in turning head to the left -pt states has had general anesthesia and no diff intubation Past Psychological History: Anxiety Smoking Status: Former smoker Past Alcohol Use History: Occasional Additional Past Alcohol Use History / Comment(s): quit smoking @age of 31 Past Drug Use History: None Reported - Past Family History Mother Family Medical History: Cancer Brother(s) Family Medical History: Deep Vein Thrombosis (DVT) Medications and Allergies Home Medications Medication Instructions Recorded Confirmed Type Aspirin 81 mg PO HS 01/12/14 03/22/19 History Docusate [Colace] 100 mg PO BID PRN 01/12/14 03/22/19 History Fenofibrate [Lofibra] 160 mg PO DAILY 01/12/14 03/22/19 History Lisinopril [Zestril] 20 mg PO HS 01/12/14 03/22/19 History Multivitamins, Thera [Multivitamin 1 tab PO DAILY 01/12/14 03/22/19 History (formulary)] traMADol HCl [Ultram] 50 mg PO TID PRN 01/12/14 03/22/19 History Cholecalciferol [Vitamin D3] 1,000 unit PO DAILY 07/06/17 03/22/19 History Omeprazole 20 mg PO DAILY 07/06/17 03/22/19 History Polyethylene Glycol 3350 [Miralax] 17 gm PO DAILY 07/06/17 03/22/19 History Citalopram Hydrobromide 10 mg PO HS 05/21/18 03/22/19 History [Citalopram HBr] Dicyclomine [Bentyl] 10 mg PO TID PRN 05/21/18 03/22/19 History Metoprolol Succinate (ER) [Toprol 25 mg PO DAILY 05/21/18 03/22/19 History Xl] Rosuvastatin [Crestor] 10 mg PO DAILY 05/21/18 03/22/19 History amLODIPine [Norvasc] 5 mg PO HS 05/21/18 03/22/19 History Allergies Allergy/AdvReac Type Severity Reaction Status Date / Time gabapentin [From Neurontin] Allergy Confusion Verified 03/21/19 20:46 Sulfa (Sulfonamide Allergy Rash/Hives Verified 03/21/19 20:46 Antibiotics) codeine AdvReac Nausea Verified 03/21/19 20:46 adhesive micropore tape AdvReac blisters Uncoded 03/21/19 20:46 Physical Exam Vitals: Vital Signs Temp Pulse Pulse Resp BP BP Pulse Ox 03/22/19 16:00 97.2 F L 88 18 119/59 96 03/22/19 15:57 86 03/22/19 15:48 88 97 03/22/19 15:30 98.0 F 03/22/19 11:58 72 03/22/19 11:48 68 03/22/19 11:19 82 18 03/22/19 11:03 82 18 134/68 97 03/22/19 08:00 97.9 F 80 18 140/68 97 03/22/19 07:58 72 03/22/19 07:50 72 98 03/22/19 04:00 97.5 F L 72 17 109/61 98 03/22/19 00:00 97.9 F 69 17 177/75 99 03/21/19 23:18 97.9 F 69 17 177/75 99 03/21/19 22:30 87 16 132/71 03/21/19 22:13 65 03/21/19 22:08 61 03/21/19 20:37 98.1 F 64 18 145/75 96 Intake and Output 03/22/19 03/22/19 03/22/19 06:59 14:59 22:59 Intake Total 500 410 10 Balance 500 410 10 Intake: IV 20 20 10 Invasive Line 1 20 20 10 Oral 480 390 Other: Voiding Method Toilet # Voids 1 1 1 Weight 69.6 kg Physical Exam: Revealed a 78-year-old female in no distress. Head: Atraumatic, normocephalic. HEENT:[Neck is supple.] [No neck masses.] [No thyromegaly.] [No JVD.]PERRLA, EOMI, no icterus. Chest: [Clear throughout, no crackles, no rhonchi, no wheezes.]symmetrical chest expansion, no chest wall tenderness. Cardiac Exam: [Normal S1 and S2, no S3 gallop, no murmur.] Abdomen: [Soft, nontender, no megaly, no rebound, no guarding, normal bowel sounds.] Extremities: [No clubbing, no edema, no cyanosis.] Neurological Exam: [No focal neurologic deficit.] psychiatric: Normal mood, affect and normal mental status examination. Skin: No rashes. Lymphatics: No lymphadenopathy. Results - Laboratory Findings CBC and BMP: 03/21/19 21:30 03/21/19 21:30 PT/INR, D-dimer PT 10.3 sec (9.0-12.0) 03/21/19 21:30 INR 1.0 (<1.2) 03/21/19 21:30 D-Dimer 0.31 mg/L FEU (<0.60) 03/22/19 09:31 Abnormal lab findings: Abnormal Labs 03/21/19 03/21/19 03/21/19 21:30 21:30 21:30 RBC 3.57 L Hgb 11.3 L Hct 32.7 L BUN 18 H Glucose 126 H Alkaline Phosphatase 35 L Troponin I 0.076 H* Total Protein 5.9 L 03/22/19 03:21 RBC Hgb Hct BUN Glucose Alkaline Phosphatase Troponin I 0.076 H* Total Protein - Diagnostic Findings Chest x-ray: image reviewed Assessment and Plan Assessment: impression: 1: Acute tracheobronchitis with reactive bronchospasm. 2: Possible underlying bronchial asthma however this is yet to be determined on outpatient basis, and the patient will likely require a methacholine inhalation challenge test if she is found to have normal spirometry. Based on physical examination, I believe her spirometry will likely be normal. 3: Nonspecific elevation of troponin, being addressed by cardiology. 4: History of benign essential hypertension 5:history of GERD, presently well-controlled 6: History of dyslipidemia. Recommendation: Agree with the present treatment plan including antibiotics, br onchodilators, IV Solu-Medrol, and inhaled Pulmicort, cough suppressants, Protonix, and the patient will likely improve significantly in the next 24 hours. Consider discharge planning in the next 24 hours. We'll continue to follow. Time with Patient: Greater than 30
[2019-03-22 16:59] LABS: Glucose,Whole Blood 184 mg/dL (75-99)
[2019-03-22] MEDS: methylPREDNISolone SOD SUCCI 125 MG/2 ML VIAL IV SCH ×2 (17:31→23:31)
[2019-03-22] MEDS: INSULIN ASPART (NovoLOG) 100 UNIT/ML VIAL SQ SCH ×2 (17:31→21:37)
[2019-03-22] MEDS: BUDESONIDE 1 MG/2 ML NEBU INHALATION SCH (20:22)
[2019-03-22 20:38] LABS: Glucose,Whole Blood 174 mg/dL (75-99)
[2019-03-22] MEDS ORDERED: FAMOTIDINE 20 MG TAB PO SCH (21:00)
[2019-03-22] MEDS ORDERED: amLODIPine 5 MG TAB PO SCH (21:00)
--- NOTE | 2019-03-22 23:27 | P.HPIM ---
History of Present Illness H&P Date: 03/22/19 Chief Complaint: Shortness of breath Ms. Howard is a 78-year-old female with a past medical history of hypertension, hyperlipidemia, GERD coming into the hospital with a chief complaint of cough for the past 1 week. Patient states that she had an upper respiratory tract-like symptoms 7 to 10 days back with a runny nose and since then started to have cough. But yesterday she coughed for approximately 30 to 40 minutes continuously. Her gave her some Robitussin but that did not help her. After having this episode she felt like she lost her memory for a few minutes. She did not remember whether she had dinner last night. At that time patient did not have any slurred speech, headaches or change in her vision. She also did not have any weakness of her extremities and there was no loss of consciousness. After couple of minutes her memory was back to normal. Patient denied having any other symptoms. No chest pain or palpitations. Whitley l pain nausea vomiting or diarrhea. No dysuria or hematuria. Patient states that she received her flu vaccine and also pneumococcal vaccine. And she also caught at the posterior dose of Tdap. In the emergency patient had labs done with a hemoglobin of 11.3 mildly elevated troponin of 0.076 and a chest x-ray that was negative for any acute cardiopulmonary process. D-dimer is 0.[address] acute ST or T wave changes. She has been tested negative for influenza a and B. The patient is admitted to the hospital for further management. Review of Systems REVIEW OF SYSTEMS: PSYCH: Normal psychiatric exam NEURO:No c/o weakness of the extremties, No facial droop, No speech abnormalities. VASCULAR: Peripheral nervous system within the normal limits no edema HEMATOLOGIC: No history of easy bleeding and bruising . No recent infections . RESPIRATORY: As per HPI IMMUNE: No infections INTEGUMENT: no rashes OPHTHALMOLOGIC: No blurry vision and no eye discharge : No dysuria or hematuria STRUCTURAL ANALYSIS ENGINEER: No bleeding PV CARDIAC: No chest pain , shortness of breath , paroxysmal nocturnal dyspnea MUSCULOSKELETAL : No Aches or pains in the joints or muscles. GI: No abdominal pain, Nausea or vomiting. No constipation or diarrhea. Past Medical History Past Medical History: GERD/Reflux, Hyperlipidemia, Hypertension Additional Past Medical History / Comment(s): occ palpitations, diverticulosis, hx. anemia History of Any Multi-Drug Resistant Organisms: None Reported Past Surgical History: Appendectomy, Back Surgery, Breast Surgery, Cholecystec eddi, Hysterectomy, Tonsillectomy Additional Past Surgical History / Comment(s): lysis of adhesion, detached retina left eye, breast benign tumor, cataracts removed Past Anesthesia/Blood Transfusion Reactions: Previous Problems w/ Anesthesia, Motion Sickness Additional Past Anesthesia/Blood Transfusion Reaction / Comment(s): diff waking up, limitations in turning head to the left -pt states has had general anesthesia and no diff intubation Past Psychological History: Anxiety Smoking Status: Former smoker Past Alcohol Use History: Occasional Additional Past Alcohol Use History / Comment(s): quit smoking @age of 31 Past Drug Use History: None Reported - Past Family History Mother Family Medical History: Cancer Brother(s) Family Medical History: Deep Vein Thrombosis (DVT) Medications and Allergies Home Medications Medication Instructions Recorded Confirmed Type Aspirin 81 mg PO HS 01/12/14 03/22/19 History Docusate [Colace] 100 mg PO BID PRN 01/12/14 03/22/19 History Fenofibrate [Lofibra] 160 mg PO DAILY 01/12/14 03/22/19 History Lisinopril [Zestril] 20 mg PO HS 01/12/14 03/22/19 History Multivitamins, Thera [Multivitamin 1 tab PO DAILY 01/12/14 03/22/19 History (formulary)] traMADol HCl [Ultram] 50 mg PO TID PRN 01/12/14 03/22/19 History Cholecalciferol [Vitamin D3] 1,000 unit PO DAILY 07/06/17 03/22/19 History Omeprazole 20 mg PO DAILY 07/06/17 03/22/19 History Polyethylene Glycol 3350 [Miralax] 17 gm PO DAILY 07/06/17 03/22/19 History Citalopram Hydrobromide 10 mg PO HS 05/21/18 03/22/19 History [Citalopram HBr] Dicyclomine [Bentyl] 10 mg PO TID PRN 05/21/18 03/22/19 History Metoprolol Succinate (ER) [Toprol 25 mg PO DAILY 05/21/18 03/22/19 History Xl] Rosuvastatin [Crestor] 10 mg PO DAILY 05/21/18 03/22/19 History amLODIPine [Norvasc] 5 mg PO HS 05/21/18 03/22/19 History Allergies Allergy/AdvReac Type Severity Reaction Status Date / Time gabapentin [From Neurontin] Allergy Confusion Verified 03/21/19 20:46 Sulfa (Sulfonamide Allergy Rash/Hives Verified 03/21/19 20:46 Antibiotics) codeine AdvReac Nausea Verified 03/21/19 20:46 adhesive micropore tape AdvReac blisters Uncoded 03/21/19 20:46 Physical Exam Vitals: Vital Signs Temp Pulse Pulse Resp BP BP Pulse Ox 03/22/19 11:58 72 03/22/19 11:48 68 03/22/19 11:19 82 18 03/22/19 11:03 82 18 134/68 97 03/22/19 08:00 97.9 F 80 18 140/68 97 03/22/19 07:58 72 03/22/19 07:50 72 98 03/22/19 04:00 97.5 F L 72 17 109/61 98 03/22/19 00:00 97.9 F 69 17 177/75 99 03/21/19 23:18 97.9 F 69 17 177/75 99 03/21/19 22:30 87 16 132/71 03/21/19 22:13 65 03/21/19 22:08 61 03/21/19 20:37 98.1 F 64 18 145/75 96 Intake and Output 03/21/19 03/22/19 03/22/19 22:59 06:59 14:59 Intake Total 500 160 Balance 500 160 Intake: IV 20 20 Invasive Line 1 20 20 Oral 480 140 Other: Voiding Method Toilet # Voids 1 1 Weight 68.039 kg 69.6 kg GEN. APPEARANCE: alert, in no apparent distress HEENT : no pallor, no ictreus, no thyromegaly, no lympadenopathy RESPIRATORY EXAM: normal lung sounds bilaterally. no wheezing or crackles CARDIOVASCULAR EXAM: regular rate, normal rhythm, normal heart sounds. GI/ABDOMINAL EXAM: soft, normal bowel sounds. No tenderness, guarding, rebound or rigidity EXTREMITIES EXAM: no edema NEUROLOGICAL EXAM: alert, oriented X3,no focal deficits PSYCHIATRIC EXAM: normal affect, normal mood SKIN EXAM: warm, dry, intact, normal color. Absent: rash Results CBC & Chem 7: 03/21/19 21:30 03/21/19 21:30 Labs: Abnormal Lab Results - Last 24 Hours (Table) 03/21/19 03/21/19 03/21/19 Range/Units 21:30 21:30 21:30 RBC 3.57 L (3.80-5.40) m/uL Hgb 11.3 L (11.4-16.0) gm/dL Hct 32.7 L (34.0-46.0) % BUN 18 H (7-17) mg/dL Glucose 126 H (74-99) mg/dL Alkaline Phosphatase 35 L (38-126) U/L Troponin I 0.076 H* (0.000-0.034) ng/mL Total Protein 5.9 L (6.3-8.2) g/dL 03/22/19 Range/Units 03:21 RBC (3.80-5.40) m/uL Hgb (11.4-16.0) gm/dL Hct (34.0-46.0) % BUN (7-17) mg/dL Glucose (74-99) mg/dL Alkaline Phosphatase (38-126) U/L Troponin I 0.076 H* (0.000-0.034) ng/mL Total Protein (6.3-8.2) g/dL Thrombosis Risk Factor Assmnt - Choose All That Apply Any of the Below Risk Factors Present?: No Other Risk Factors: Yes Each Risk Factor Represents 3 Points: Age 75 years or older, Family history of DVT/PE Thrombosis Risk Factor Assessment Total Risk Factor Score: 6 Thrombosis Risk Factor Assessment Level: High Risk Assessment and Plan Assessment: ASSESSMENT Acute tracheobronchitis Acute bronchospasm Elevated troponins Hypertension Hyperlipidemia History of benign breast tumor GERD PLAN: Patient has been started on Solu-Medrol and breathing treatments, cough seems to be improving. Continue with antibiotics in the form of Zithromax. Cardiology has been consulted for troponin elevation. Patient is scheduled for an echocardiogram. Patient was resumed on all her home medications. Further recommendations to follow depending on the progress of the patient.
[2019-03-23] MEDS: BENZONATATE 100 MG CAP PO PRN (00:54)
[2019-03-23 06:13] LABS: Glucose,Whole Blood 141 mg/dL (75-99)
[2019-03-23] MEDS: methylPREDNISolone SOD SUCCI 125 MG/2 ML VIAL IV SCH (07:11)
[2019-03-23] MEDS: INSULIN ASPART (NovoLOG) 100 UNIT/ML VIAL SQ SCH (07:12)
[2019-03-23] MEDS: traMADol 50 MG TAB PO SCH (07:12)
[2019-03-23] MEDS: IPRATROPIUM-ALBUTEROL 3 ML NEB INHALATION SCH ×2 (07:17→12:02)
[2019-03-23] MEDS: BUDESONIDE 1 MG/2 ML NEBU INHALATION SCH (07:17)
[2019-03-23] MEDS: ATORVASTATIN 20 MG TAB PO SCH (07:44)
[2019-03-23 08:04] VITALS: BP 138/73; TEMP 97.8
[2019-03-23] MEDS: POLYETHYLENE GLYCOL 3350 17 GM POWD.PACK PO SCH (08:21)
[2019-03-23] MEDS: METOPROLOL SUCCINATE (ER) 25 MG TAB.ER.24H PO SCH (08:21)
[2019-03-23] MEDS: MULTIVITAMINS, THERA 1 EACH TAB PO SCH (08:21)
[2019-03-23] MEDS: FENOFIBRATE 160 MG TAB PO SCH (08:21)
[2019-03-23] MEDS: PANTOPRAZOLE 40 MG TABLET PO SCH (08:21)
[2019-03-23] MEDS: AZITHROMYCIN 500 MG TAB PO SCH (08:21)
[2019-03-23] MEDS ORDERED: DOCUSATE 100 MG CAP PO PRN (09:00)
[2019-03-23 12:04] VITALS: RESP 16
[2019-03-23 12:12] VITALS: PULSE 76
--- NOTE | 2019-03-23 12:39 | P.PN ---
Subjective Progress Note Date: 03/23/19 Principal diagnosis: Acute bronchitis with bronchospasm this is a 78-year-old female remote history of smoking, [id number] history of smoking until she was 30 years old. Quit at age 30, patient had no previous history of documented COPD, no history of asthma, however few years back she was seen by her primary care physician and she was wheezing at the time. Patient was placed on Singulair and albuterol, however she hardly ever takes these medications. Patient presented to the ER with 1 week history of cough, cough is dry hacking cough, nonproductive, was significantly worse last night. Patient also had other symptoms suggestive of acute URI including nasal congestion, pressure and fullness over the years, sore throat, cough, chest tightness, and her cough was so severe last night to the point that she coughed for about 45 minutes straight and to the point of vomiting. Patient was given Robitussin-DM by her , and there was some relief. She came into the ER today, chest x- ray showed no evidence of infiltrate, however considering the severity of her s ymptoms and her persistent cough, patient was admitted and this consult was initiated. Patient denies any fever or chills, denies any hemoptysis, denies any abdominal pain, melena or hematemesis. She did have one episode of vomiting from severe cough. According to the she develops this cough almost on a yearly basis and whenever she gets an upper respiratory tract infection, her symptoms sort of linger for a long period of time before she recovers fully. Again she was never truly diagnosed with asthma or COPD. But considering her symptoms the patient may have underlying asthma. Chest x-ray again on admission showed no evidence of infiltrate. Patient has occasional GERD, usually well controlled with omeprazole, she has been on lisinopril for at least 2 years, does not seem to be a factor in her intermittent episodes of cough. On 03/23/2019 patient seen in follow-up on selective care unit, she states her cough has significantly improved, breathing much easier, less bronchospastic, vital signs are stable, she is satting 98% on room air, no fever or chills, no complaints of chest pain, no hemoptysis, hemodynamically stable, influenza screen was negative. No fever or chills. Patient has been treated with IV steroids, and Zithromax, responded well, and she is going home today. Objective - Vital Signs Vital signs: Vital Signs Temp 97.8 F 03/23/19 08:00 Pulse 76 03/23/19 12:11 Resp 16 03/23/19 12:11 BP 138/73 03/23/19 08:00 Pulse Ox 98 03/23/19 08:00 Intake & Output 03/22/19 03/23/19 03/23/19 18:59 06:59 18:59 Intake Total 540 360 Balance 540 360 Weight 69.1 kg Intake: IV 30 Invasive Line 1 30 Oral 510 360 Other: Voiding Method Toilet # Voids 1 1 1 - Exam GENERAL EXAM: Alert, pleasant, 78-year-old white female, on room air, with a pulse ox of 90% comfortable in no apparent distress. HEAD: Normocephalic/atraumatic. EYES: Normal reaction of pupils, equal size. Conjunctiva pink, sclera white. NOSE: Clear with pink turbinates. THROAT: No erythema or exudates. NECK: No masses, no JVD, no thyroid enlargement, no adenopathy. CHEST: No chest wall deformity. Symmetrical expansion. LUNGS: Equal air entry with no crackles, wheeze, rhonchi or dullness. CVS: Regular rate and rhythm, normal S1 and S2, no gallops, no murmurs, no rubs ABDOMEN: Soft, nontender. No hepatosplenomegaly, normal bowel sounds, no guarding or rigidity. EXTREMITIES: No clubbing, no edema, no cyanosis, 2+ pulses and upper and lower extremities. MUSCULOSKELETAL: Muscle strength and tone normal. SPINE: No scoliosis or deformity SKIN: No rashes CENTRAL NERVOUS SYSTEM: Alert and oriented -3. No focal deficits, tone is normal in all 4 extremities. PSYCHIATRIC: Alert and oriented -3. Appropriate affect. Intact judgment and insight. - Labs CBC & Chem 7: 03/21/19 21:30 03/21/19 21:30 Labs: Abnormal Lab Results - Last 24 Hours (Table) 03/22/19 03/22/19 03/23/19 Range/Units 16:58 20:36 06:12 POC Glucose (mg/dL) 184 H 174 H 141 H (75-99) mg/dL Assessment and Plan Plan: Assessment: 1: Acute tracheobronchitis with reactive bronchospasm. 2: Possible underlying bronchial asthma however this is yet to be determined on outpatient basis, and the patient will likely require a methacholine inhalation challenge test if she is found to have normal spirometry. Based on physical examination, I believe her spirometry will likely be normal. 3: Nonspecific elevation of troponin, being addressed by cardiology. 4: History of benign essential hypertension 5:history of GERD, presently well-controlled 6: History of dyslipidemia. Plan: Patient has responded well to inpatient treatments, steroids, antibiotics and breathing treatments, less coughing, and wheezing. Vital signs are stable, no fever or chills, stable for discharge home today, follow-up appointment with Dr. Mace in one or 2 weeks I performed a history & physical examination of the patient and discussed their management with my nurse practitioner, Karuna Wood. I reviewed the nurse practitioner's note and agree with the documented findings and plan of care. Lung sounds are positive for clear breath sounds. The findings and the impression was discussed with the patient. I attest to the documentation by the nurse practitioner. Time with Patient: Less than 30
--- NOTE | 2019-03-23 13:42 | P.DS ---
Providers Date of admission: 03/23/19 08:55 Attending physician: Екатерина Arriaza Consults: 03/21/19 22:47 Consult Physician Routine Consulting Provider: Johanna Syed Consult Reason/Comments: Elevated troponin Do you want consulting provider notified?: Yes 03/22/19 15:28 Consult Physician Routine Consulting Provider: Denny Hankins Reason/Comments: bronchitis Do you want consulting provider notified?: Already Contacted Primary care physician: [facility] Course: 72-year-old female with the no known history of COPD no significant smoking history came in with the bronchospasm and tracheobronchitis patient is feeling better will be discharged today on Tessalon Perles for cough along with very short course of tapering steroids patient is not wheezing today. Patient is not diabetic with blood sugars as little bit elevated because of high dose IV steroids. Patient is also being discharged on azithromycin patient will follow- up with pulmonology and will have methacholine challenge test as an outpatient. PHYSICAL EXAMINATION: GENERAL: The patient is alert and oriented x3, not in any acute distress. Well developed, well nourished. HEENT: Pupils are round and equally reacting to light. EOMI. No scleral icterus. No conjunctival pallor. Normocephalic, atraumatic. No pharyngeal erythema. No thyromegaly. CARDIOVASCULAR: S1 and S2 present. No murmurs, rubs, or gallops. PULMONARY: Chest is clear to auscultation, no wheezing or crackles. ABDOMEN: Soft, nontender, nondistended, normoactive bowel sounds. No palpable organomegaly. MUSCULOSKELETAL: No joint swelling or deformity. EXTREMITIES: No cyanosis, clubbing, or pedal edema. NEUROLOGICAL: Gross neurological examination did not reveal any focal deficits. SKIN: No rashes. Rest of the chronic medical problems and hospice physician course please refer to dictation of hpf from Dr. Schuster from yesterday Patient Condition at Discharge: Good Plan - Discharge Summary Discharge Rx Participant: No New Discharge Prescriptions: New Azithromycin [Zithromax] 500 mg PO DAILY #5 tab predniSONE 10 mg PO DAILY #30 tab Benzonatate [Tessalon Perles] 200 mg PO TID PRN #30 cap PRN Reason: Cough Albuterol Inhaler [Ventolin Hfa Inhaler] 1 - 2 puff INHALATION Q6HR PRN #1 inhaler PRN Reason: Shortness Of Breath Or Wheezing Continue Docusate [Colace] 100 mg PO BID PRN PRN Reason: Constipation traMADol HCl [Ultram] 50 mg PO TID PRN PRN Reason: Pain Multivitamins, Thera [Multivitamin (formulary)] 1 tab PO DAILY Lisinopril [Zestril] 20 mg PO HS Fenofibrate [Lofibra] 160 mg PO DAILY Aspirin 81 mg PO HS Omeprazole 20 mg PO DAILY Cholecalciferol [Vitamin D3 (25 Mcg = 1000 Iu)] 1,000 unit PO DAILY Polyethylene Glycol 3350 [Miralax] 17 gm PO DAILY amLODIPine [Norvasc] 5 mg PO HS Metoprolol Succinate (ER) [Toprol XL] 25 mg PO DAILY Dicyclomine [Bentyl] 10 mg PO TID PRN PRN Reason: Spasms Rosuvastatin [Crestor] 10 mg PO DAILY Citalopram Hydrobromide [Citalopram HBr] 10 mg PO HS Discharge Medication List Aspirin 81 mg PO HS 01/12/14 [History] Docusate [Colace] 100 mg PO BID PRN 01/12/14 [History] Fenofibrate [Lofibra] 160 mg PO DAILY 01/12/14 [History] Lisinopril [Zestril] 20 mg PO HS 01/12/14 [History] Multivitamins, Thera [Multivitamin (formulary)] 1 tab PO DAILY 01/12/14 [History] traMADol HCl [Ultram] 50 mg PO TID PRN 01/12/14 [History] Cholecalciferol [Vitamin D3 (25 Mcg = 1000 Iu)] 1,000 unit PO DAILY 07/06/17 [History] Omeprazole 20 mg PO DAILY 07/06/17 [History] Polyethylene Glycol 3350 [Miralax] 17 gm PO DAILY 07/06/17 [History] Citalopram Hydrobromide [Citalopram HBr] 10 mg PO HS 05/21/18 [History] Dicyclomine [Bentyl] 10 mg PO TID PRN 05/21/18 [History] Metoprolol Succinate (ER) [Toprol XL] 25 mg PO DAILY 05/21/18 [History] Rosuvastatin [Crestor] 10 mg PO DAILY 05/21/18 [History] amLODIPine [Norvasc] 5 mg PO HS 05/21/18 [History] Albuterol Inhaler [Ventolin Hfa Inhaler] 1 - 2 puff INHALATION Q6HR PRN #1 inhaler 03/23/19 [Rx] Azithromycin [Zithromax] 500 mg PO DAILY #5 tab 03/23/19 [Rx] Benzonatate [Tessalon Perles] 200 mg PO TID PRN #30 cap 03/23/19 [Rx] predniSONE 10 mg PO DAILY #30 tab 03/23/19 [Rx] Follow up Appointment(s)/Referral(s): Denny Hankins MD [STAFF PHYSICIAN] - 04/08/19 2:15 pm Deonte Haynes MD [STAFF PHYSICIAN] - 4 Weeks (Wealth Management Consultant - please follow up after bronchitis clears related to elevated troponins.) Rocio Carroll MD [Primary Care Provider] - 03/31/19 12:00 pm Patient Instructions/Handouts: Acute Bronchitis (ED) Discharge Disposition: HOME SELF-CARE
--- NOTE | 2019-03-23 16:20 | PN ---
PROGRESS NOTE Mrs. Howard is a 78-year-old female who presented with symptoms of progressive cough with mild dyspnea. She had minimal troponin elevation. She is feeling better today. Her cough has improved. She is denying any chest pain. No dizziness. No palpitations. She continues to be active physically without difficulty. She denies any nausea or vomiting. She underwent an echocardiogram that revealed preserved left ventricular systolic function with mild to moderate aortic regurgitation and mild regurgitation. She was seen by Dr. Hankins yesterday and continues to be on aspirin once a day, amlodipine 5 mg daily, Lipitor 20 mg daily, fenofibrate 160 mg daily, Lisinopril 20 mg daily, metoprolol succinate 25 mg daily, and she was started on steroids and antibiotics. On physical examination, blood pressure 138/70 with a heart rate of 70. LUNGS: Clear. HEART: Regular rate and rhythm. S1, S2. No S3. Systolic murmur and diastolic murmur at the base. ABDOMEN: Soft, non-tender. EXTREMITIES: No edema. IMPRESSION: 1. Bronchitis, improved. 2. Aortic regurgitation, stable. 3. Mild troponin elevation, not reflecting an acute coronary syndrome. 4. Hypertension. 5. Hyperlipidemia. RECOMMENDATIONS: From the cardiac standpoint, she is stable. I would expect she should be able to be discharged home soon and follow as an outpatient with Dr. Logan. PRATIBHA / ALISIA: [id number] /
[2019-03-23] MEDS ORDERED: ASPIRIN 81 MG PO SCH (21:00)
== END 2019-03-23 12:16 | disposition home or self-care (01) | DRG 203 ==
LOC: EC 20:34 → 3SCARD 22:47 → OBSVTOIN 03-23 08:55
PROVIDERS: ADMIT Hospitalist; ATTEND Hospitalist
DX: J20.9 Acute bronchitis, unspecified (principal); I35.1 Nonrheumatic aortic (valve) insufficiency; D64.9 Anemia, unspecified; R79.89 Other specified abnormal findings of blood chemistry; I10 Essential (primary) hypertension; K21.9 Gastro-esophageal reflux disease without esophagitis; E78.5 Hyperlipidemia, unspecified; K57.90 Diverticulosis of intestine, part unspecified, without perforation or abscess without bleeding; Z79.82 Long term (current) use of aspirin; Z79.899 Other long term (current) drug therapy; Z88.5 Allergy status to narcotic agent; Z88.2 Allergy status to sulfonamides; Z88.8 Allergy status to other drugs, medicaments and biological substances; Z91.048 Other nonmedicinal substance allergy status; Z90.49 Acquired absence of other specified parts of digestive tract; Z90.710 Acquired absence of both cervix and uterus; Z86.69 Personal history of other diseases of the nervous system and sense organs; Z86.59 Personal history of other mental and behavioral disorders; Z87.891 Personal history of nicotine dependence; Z98.890 Other specified postprocedural states; Z98.42 Cataract extraction status, left eye; Z98.41 Cataract extraction status, right eye; Z80.9 Family history of malignant neoplasm, unspecified; Z83.2 Family history of diseases of the blood and blood-forming organs and certain disorders involving the immune mechanism
CPT/HCPCS: 36415; 71046; 80053; 83880; 84484; 85025; 85379; 85610; 85730; 87502; 93005; 93306; 94640; 94760; 99285

== ENCOUNTER → 2019-06-01 | Outpatient (CLI) | payer MEDICARE, BC ==
[2019-06-01 15:31] LABS: HCT 36.8 % (34.0-46.0); HGB 12.6 gm/dL (11.4-16.0); MCH 31.9 pg (25.0-35.0); MCHC 34.2 g/dL (31.0-37.0); MCV 93.2 fL (80.0-100.0); Mean Platelet Volume 6.9; Platelet Count 340 k/uL (150-450); RBC 3.95 m/uL (3.80-5.40); RDW 13.1 % (11.5-15.5); WBC 4.5 k/uL (3.8-10.6)
[2019-06-01 18:18] LABS: Total Eosinophil Count 89 #EOS/uL (150-300)
[2019-06-02 02:00] LABS: Dermato. farinae IgE <0.10 kU/L
[2019-06-02 02:01] LABS: Cat Epith & Dander IgE <0.10 kU/L; Dog Dander IgE <0.10 kU/L
[2019-06-02 02:02] LABS: Aspergillus fumagatus IgE <0.10 kU/L; Cladosporian herbarum IgE <0.10 kU/L; Cockroach IgE <0.10 kU/L
[2019-06-02 02:03] LABS: Alternaria alternata IgE <0.10 kU/L; Birch IgE <0.10 kU/L; Maple (Box Elder) IgE <0.10 kU/L; Oak IgE <0.10 kU/L
[2019-06-02 02:04] LABS: Elm IgE <0.10 kU/L; Ragweed,Common IgE <0.10 kU/L
[2019-06-02 02:05] LABS: Red Top (Bentgrass) IgE <0.10 kU/L
== END | disposition home or self-care (01) ==
LOC: LABWHC1 14:47
PROVIDERS: ATTEND Internal Medicine
DX: R05 Cough (principal); Z91.09 Other allergy status, other than to drugs and biological substances
CPT/HCPCS: 36415; 82785; 85008; 85027; 86003

== ENCOUNTER → 2019-10-22 | Outpatient (CLI) | payer MEDICARE, BC ==
--- NOTE | 2019-10-22 11:25 | MM ---
Reason for exam: additional evaluation requested from prior study. Last mammogram was performed 1 year and 3 months ago. History: Patient is postmenopausal. Family history of breast cancer in maternal cousin at age 20. Benign excisional biopsy of the right breast, 2007. Took estrogen for 30 years beginning at age 35. Physical Findings: Nurse did not find any significant physical abnormalities on exam. MG 3D Diag Mammo W/Cad ADAMA Bilateral CC and MLO view(s) were taken. Prior study comparison: July 16, 2018, bilateral MG 3d screening mammo w/cad. June 02, 2017, bilateral MG 3d screening mammo w/cad. The breast tissue is heterogeneously dense. This may lower the sensitivity of mammography. No significant new findings when compared with previous films. to the patient on 10/22/19. ASSESSMENT: Benign, BI-RAD 2 RECOMMENDATION: Routine screening mammogram of both breasts in 1 year. Manage patient on a clinical basis.
--- NOTE | 2019-10-22 11:26 | USB ---
Reason for exam: additional evaluation requested from prior study. History: Patient is postmenopausal. Family history of breast cancer in maternal cousin at age 20. Benign excisional biopsy of the right breast, 2007. Took estrogen for 30 years beginning at age 35. US Breast RT Right complete breast ultrasound includes all four quadrants, the retroareolar region and axilla. 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 These results were verbally communicated with the patient and result sheet given to the patient on 10/22/19. ASSESSMENT: Benign, BI-RAD 2 RECOMMENDATION: Routine screening mammogram of both breasts in 1 year. Manage patient on a clinical basis.
== END | disposition home or self-care (01) ==
LOC: RADMAMWWP 10:02
PROVIDERS: ATTEND Family Medicine
DX: N64.4 Mastodynia (principal)
CPT/HCPCS: 77066; 76641; G0279; 77062

== ENCOUNTER → 2020-11-22 | Outpatient (CLI) | payer MEDICARE, BC ==
--- NOTE | 2020-11-27 13:32 | MM ---
Reason for exam: screening (asymptomatic). Last mammogram was performed 1 year and 1 month ago. History: Patient is postmenopausal. Family history of breast cancer in maternal cousin at age 20. Benign excisional biopsy of the right breast, 2007. Took estrogen for 30 years beginning at age 35. Physical Findings: A clinical breast exam by your physician is recommended on an annual basis and results should be correlated with mammographic findings. MG 3D Screening Mammo W/Cad Bilateral CC and MLO view(s) were taken. Prior study comparison: October 22, 2019, bilateral MG 3d diag mammo w/cad ADAMA. July 16, 2018, bilateral MG 3d screening mammo w/cad. There are scattered fibroglandular densities. Finding: There are typically benign dystrophic, round, linear calcifications in both breasts. Asymmetric breast tissue right breast, stable. There is no discrete abnormality. ASSESSMENT: Benign, BI-RAD 2 RECOMMENDATION: Routine screening mammogram of both breasts in 1 year.
== END | disposition home or self-care (01) ==
LOC: RADMAMWWP 16:01
PROVIDERS: ATTEND Family Medicine
DX: Z12.31 Encounter for screening mammogram for malignant neoplasm of breast (principal); Z78.0 Asymptomatic menopausal state; Z79.818 Long term (current) use of other agents affecting estrogen receptors and estrogen levels; Z80.3 Family history of malignant neoplasm of breast
CPT/HCPCS: 77063; 77067

== ENCOUNTER → 2022-01-24 | Outpatient (CLI) | payer MEDICARE, BC ==
--- NOTE | 2022-01-24 15:33 | MM ---
Reason for Exam: Screening (asymptomatic). Last mammogram was performed 1 year(s) and 2 month(s) ago. Patient History: Menarche at age 14. First Full-Term at age 25. Hysterectomy at age 35. Postmenopausal. Estrogen for 30 years from age 35 until age 65. 2008, Benign Excisional Biopsy on the right side. Maternal cousin had breast cancer, age 20. Risk Values: Amalia 5 year model risk: 1.9%. NCI Lifetime model risk: 2.8%. Prior Study Comparison: 07/16/2018 Bilateral Screening Mammogram, [facility]. 10/22/2019 Bilateral Diagnostic Mammogram, [facility]. 11/22/2020 Bilateral Screening Mammogram, [facility]. Tissue Density: There are scattered fibroglandular densities. Findings: Analyzed By CAD. There is no suspicious group of microcalcifications or new suspicious mass in either breast. Benign-appearing calcifications within both breasts. No significant change from prior exams. Overall Assessment: Benign, BI-RAD 2 Management: Screening Mammogram of both breasts in 1 year. A clinical breast exam by your physician is recommended on an annual basis and results should be correlated with mammographic findings. Electronically signed and approved by: Sohail Hooker D.O.
== END | disposition home or self-care (01) ==
LOC: RADMAMWWP 13:06
PROVIDERS: ATTEND Family Medicine
DX: Z12.31 Encounter for screening mammogram for malignant neoplasm of breast (principal); Z78.0 Asymptomatic menopausal state; Z80.3 Family history of malignant neoplasm of breast
CPT/HCPCS: 77063; 77067

== ENCOUNTER → 2023-01-28 | Outpatient (CLI) | payer MEDICARE, BC ==
--- NOTE | 2023-01-29 21:10 | MM ---
Reason for Exam: Screening (asymptomatic). Last screening mammogram was performed 12 month(s) ago. Patient History: Menarche at age 14. First Full-Term at age 25. Hysterectomy at age 35. Postmenopausal. Patient has history of breast feeding. Estrogen for 30 years from age 35 until age 65. 2008, Benign Excisional Biopsy on the right side. Maternal cousin had breast cancer, age 20. Risk Values: Amalia 5 year model risk: 1.9%. NCI Lifetime model risk: 2.5%. Prior Study Comparison: 10/22/2019 Bilateral Diagnostic Mammogram, [facility]. 11/22/2020 Bilateral Screening Mammogram, [facility] 01/24/2022 Bilateral MG 3D screening mammo w/cad, [facility]. Tissue Density: There are scattered fibroglandular densities. Findings: Analyzed By CAD. There are benign bilateral secretory and oil cyst calcifications. Also, unchanged bilateral areas of asymmetric densities. There is no suspicious group of microcalcifications or new suspicious mass in either breast. Overall Assessment: Benign, BI-RAD 2 Management: Screening Mammogram of both breasts in 1 year. . Patient should continue monthly self-breast exams. A clinical breast exam by your physician is recommended on an annual basis. This exam should not preclude additional follow-up of suspicious palpable abnormalities. Note on Amalia scores and lifetime risk: 1. A Amalia score greater than 3% is considered moderate risk. If this is the case, consider specialist referral to assess eligibility for a risk reducing agent. 2. If overall lifetime risk for the development of breast cancer is 20% or higher, the patient may qualify for future screening with alternating mammogram and breast MRI. Electronically signed and approved by: Chayo Ferreira M.D. Radiologist
== END | disposition home or self-care (01) ==
LOC: RADMAMWWP 12:46
PROVIDERS: ATTEND Family Medicine
DX: Z12.31 Encounter for screening mammogram for malignant neoplasm of breast (principal); Z78.0 Asymptomatic menopausal state; Z80.3 Family history of malignant neoplasm of breast
CPT/HCPCS: 77063; 77067

== ENCOUNTER → 2024-03-17 | Outpatient (CLI) | payer MEDICARE, BC ==
--- NOTE | 2024-03-22 08:39 | MM ---
Reason for Exam: Screening (asymptomatic). Last mammogram was performed 1 year(s) and 1 month(s) ago. Patient History: Menarche at age 14. First Full-Term at age 25. Hysterectomy at age 35. Postmenopausal. Patient has history of breast feeding. Estrogen for 30 years from age 35 until age 65. 2008, Benign Excisional Biopsy on the right side. Maternal cousin had breast cancer, age 20. Risk Values: Amalia 5 year model risk: 1.8%. NCI Lifetime model risk: 2.2%. Prior Study Comparison: 04/10/2016 Bilateral Screening Mammogram, [facility]. 06/02/2017 Bilateral Screening Mammogram, [facility]. 07/16/2018 Bilateral Screening Mammogram, [facility]. 10/22/2019 Bilateral Diagnostic Mammogram, [facility]. 11/22/2020 Bilateral Screening Mammogram, [facility]. 01/24/2022 Bilateral MG 3D screening mammo w/cad, [facility]. 01/28/2023 Bilateral MG 3D screening mammo w/cad, [facility]. Tissue Density: There are scattered areas of fibroglandular density. Findings: Analyzed By CAD. Right breast: There is no suspicious group of microcalcifications or new suspicious mass. Benign-appearing calcifications right breast. Left breast: There is no suspicious group of microcalcifications or new suspicious mass. Benign-appearing calcifications left breast. Overall Assessment: Benign, BI-RAD 2 Management: Screening Mammogram of both breasts in [address] [facility] will attempt to contact patient to return for supplemental views and ultrasound if indicated. Patient should continue monthly self-breast exams. A clinical breast exam by your physician is recommended on an annual basis. This exam should not preclude additional follow-up of suspicious palpable abnormalities. Note on Amalia scores and lifetime risk: 1. A Amalia score greater than 3% is considered moderate risk. If this is the case, consider specialist referral to assess eligibility for a risk reducing agent. 2. If overall lifetime risk for the development of breast cancer is 20% or higher, the patient may qualify for future screening with alternating mammogram and breast MRI. [facility], , 03/22/2024 8:36 AM. Electronically signed and approved by: Chilo Barnes DO
== END | disposition home or self-care (01) ==
LOC: RADMAMWWP 13:04
PROVIDERS: ATTEND Family Medicine
DX: Z12.31 Encounter for screening mammogram for malignant neoplasm of breast (principal); R92.323 Mammographic fibroglandular density, bilateral breasts; Z78.0 Asymptomatic menopausal state; Z80.3 Family history of malignant neoplasm of breast
CPT/HCPCS: 77063; 77067

== ENCOUNTER 2024-04-23 15:57 | Emergency (ER) | payer MEDICARE, BC ==
[2024-04-23 16:12] VITALS: TEMP 97.6
[2024-04-23] MEDS: hydrALAZINE HCL 20 MG/ML 1 ML VIAL IVP STA (17:02)
[2024-04-23] MEDS: SODIUM CHLORIDE 0.9% 1,000 ML IV STA (17:03)
[2024-04-23 17:04] VITALS: RESP 18
[2024-04-23 17:28] LABS: Basophils % (A) 0 %; Eosinophils # (A) 0.1 k/uL (0-0.7); Eosinophils % (A) 2 %; HCT 34.6 % (34.0-46.0); HGB 11.9 gm/dL (11.4-16.0); Lymphocytes # (A) 1.2 k/uL (1.0-4.8); Lymphocytes % (A) 21 %; MCH 32.4 pg (25.0-35.0); MCHC 34.3 g/dL (31.0-37.0); MCV 94.3 fL (80.0-100.0); Mean Platelet Volume 7.2; Monocytes # (A) 0.3 k/uL (0-1.0); Monocytes % (A) 6 %; Neutrophils % (A) 70 %; Platelet Count 315 k/uL (150-450); RBC 3.67 m/uL (3.80-5.40); WBC 5.7 k/uL (3.8-10.6)
[2024-04-23 17:34] LABS: Appearance,Urine Clear (Clear); Bacteria,Urine Occasional /hpf; Bilirubin,Urine Negative (Negative); Blood,Urine Negative (Negative); Color,Urine Colorless; Glucose,Urine (UA) Negative (Negative); Ketones,Urine Negative (Negative); Leukocyte Esterase,Urine Large (Negative); Nitrite,Urine Negative (Negative); Protein,Urine Negative (Negative); RBC,Urine 1 /hpf (0-5); Specific Gravity,Urine 1.003 (1.001-1.035); Squamous Epithelial Cell,Urine <1 /hpf (0-4); Urobilinogen,Urine <2.0 mg/dL (<2.0); WBC,Urine 20 /hpf (0-5)
[2024-04-23 17:47] LABS: ALT 15 U/L (4-34); AST 27 U/L (14-36); African American GFR (CKD) 83 (>60 ml/min/1.73 sqM); Albumin 4.3 g/dL (3.5-5.0); Alkaline Phosphatase 35 U/L (38-126); Anion Gap 6 mmol/L; Blood Urea Nitrogen 21 mg/dL (7-17); Calcium 9.7 mg/dL (8.4-10.2); Carbon Dioxide 28 mmol/L (22-30); Chloride 103 mmol/L (98-107); Glucose 92 mg/dL (74-99); Magnesium 1.7 mg/dL (1.6-2.3); Non-African American GFR(CKD) 72 (>60 ml/min/1.73 sqM); Sodium 137 mmol/L (137-145); Total Bilirubin 0.3 mg/dL (0.2-1.3); Total Protein 6.3 g/dL (6.3-8.2)
--- NOTE | 2024-04-23 18:14 | XR ---
EXAMINATION TYPE: XR chest 2V DATE OF EXAM: 04/23/2024 CLINICAL HISTORY: Hypertension TECHNIQUE: Frontal and lateral views of the chest are obtained. COMPARISON: Chest x-ray 2019 FINDINGS: Overlying bra strap is present. There is no focal air space opacity, pleural effusion, or pneumothorax seen. The cardiac silhouette size remains within normal limits. The osseous structure s are intact. IMPRESSION: No acute cardiopulmonary process. [facility], , 04/23/2024 6:11 PM
[2024-04-23 18:25] VITALS: PULSE 69
--- NOTE | 2024-04-23 18:56 | CT ---
EXAMINATION TYPE: CT brain wo con DATE OF EXAM: 04/23/2024 HISTORY: PT to ER via EMS for hypertension found at dr office when she was at an appointment, pt stat es she felt light headed and got diaphoretic. CT DLP: 1125.4 mGycm. Automated Exposure Control for Dose Reduction was Utilized. TECHNIQUE: CT scan of the head is performed without contrast. COMPARISON: Prior CT 2017. FINDINGS: There is no acute intracranial hemorrhage or midline shift identified. There is mild to m oderate diffuse ventricular and sulcal prominence redemonstrated. There is mild to moderate low-atte nuation in the periventricular white matter redemonstrated. Left-sided cortical buckle redemonstrated . Right-sided aphakia redemonstrated. Paranasal sinuses are clear. IMPRESSION: No acute intracranial hemorrhage or midline shift. There is mild to moderate diffuse ag e-related cerebral atrophy and chronic small vessel ischemic change noted. [facility], , 04/23/2024 6:53 PM
--- NOTE | 2024-04-23 19:17 | ED ---
General Adult HPI - General Chief complaint: Dizziness Stated complaint: Hypertension Time Seen by Provider: 04/23/24 16:40 Source: patient, RN notes reviewed, old records reviewed Mode of arrival: EMS Limitations: no limitations - History of Present Illness Initial comments: Patient is an 83-year-old female who presents emergency department complaining of high blood pressure. Patient was at her eye doctor's appointment when she felt dizzy. Blood pressure was checked and was elevated with systolics over 190. Dizziness resolved however she was still hypertensive. EMS was called and she was brought here for further evaluation. She currently denies any symptoms. Denies any falls. Has a history of hypertension. Currently denies any chest pain, shortness of breath, without abdominal pain, nausea, vomiting. States her blood pressure usually is in systolics of 1 30-1 50. Has not missed any doses of her blood pressure medications. Has no other acute complaints at this time. Presents for further evaluation at this time. Is not on blood thinners. Denies any headaches. - Related Data Home Medications Medication Instructions Recorded Confirmed Aspirin 81 mg PO HS 01/12/14 04/23/24 Fenofibrate [Lofibra] 160 mg PO DAILY 01/12/14 04/23/24 Omeprazole 20 mg PO DAILY 07/06/17 04/23/24 Dicyclomine [Bentyl] 10 mg PO HS 05/21/18 04/23/24 Metoprolol Succinate (ER) [Toprol 25 mg PO HS 05/21/18 04/23/24 XL] Cholecalciferol (Vitamin D3) 50 mcg PO DAILY 04/23/24 04/23/24 [Vitamin D3 (50 Mcg = 2000 Iu)] DULoxetine HCL [Cymbalta] 30 mg PO HS 04/23/24 04/23/24 Hydrocortisone Pr Cream 1 applic RECTAL BID 04/23/24 04/23/24 [Proctosol-Hc 2.5%] Losartan Potassium [Cozaar] 100 mg PO DAILY 04/23/24 04/23/24 Multivit-Min/Iron/Folic/Lutein 1 tab PO DAILY 04/23/24 04/23/24 [Centrum Silver Women Tablet] Niacin 500 mg PO DAILY 04/23/24 04/23/24 Oyster Shell Calcium 500mg 1 tab PO DAILY 04/23/24 04/23/24 Rosuvastatin [Crestor] 20 mg PO HS 04/23/24 04/23/24 Previous Rx's Medication Instructions Recorded Cephalexin [Keflex] 500 mg PO Q12HR 5 Days #10 cap 04/23/24 amLODIPine [Norvasc] 2.5 mg PO DAILY PRN 7 Days #7 04/23/24 tablet Allergies Allergy/AdvReac Type Severity Reaction Status Date / Time gabapentin [From Neurontin] Allergy Confusion Verified 04/23/24 17:51 Sulfa (Sulfonamide Allergy Rash/Hives Verified 04/23/24 17:52 Antibiotics) codeine AdvReac Nausea Verified 04/23/24 17:51 adhesive micropore tape AdvReac blisters Uncoded 04/23/24 17:51 Review of Systems ROS Statement: Those systems with pertinent positive or pertinent negative responses have been documented in the HPI. Review of Systems: CONST: Denies fever EYES: Denies blurry vision ENT: Denies nasal congestion C/V: Denies Chest pain RESP: Denies shortness of breath GI: Denies abdominal pain : Denies dysuria SKIN: Denies rash. MSK: Denies joint pain. NEURO: Denies headache ROS Other: All systems not noted in ROS Statement are negative. Past Medical History Past Medical History: GERD/Reflux, Hyperlipidemia, Hypertension Additional Past Medical History / Comment(s): occ palpitations, diverticulosis, hx. anemia History of Any Multi-Drug Resistant Organisms: None Reported Past Surgical History: Appendectomy, Back Surgery, Breast Surgery, Cholecystectomy, Hysterectomy, Tonsillectomy Additional Past Surgical History / Comment(s): lysis of adhesion, detached retina left eye, breast benign tumor, cataracts removed Past Anesthesia/Blood Transfusion Reactions: Previous Problems w/ Anesthesia, Motion Sickness Additional Past Anesthesia/Blood Transfusion Reaction / Comment(s): diff waking up, limitations in turning head to the left -pt states has had general anesthesia and no diff intubation Past Psychological History: Anxiety Past Alcohol Use History: Occasional Past Drug Use History: None Reported - Past Family History Mother Family Medical History: Cancer Brother(s) Family Medical History: Deep Vein Thrombosis (DVT) General Exam - General Exam Comments Initial Comments: General: Appears in no acute distress. HEAD: Normal with no signs of head trauma. EYES: PERRLA, EOMI, conjunctiva normal, no discharge. Pupils are 3 mm and equal bilaterally. ENT: Hearing grossly intact, normal oropharynx. RESPIRATORY: Clear breath sounds bilaterally. No wheezes, rales, or rhonchi. C/V: Regular rate and rhythm. S1 and S2 auscultated, no edema, peripheral pulses 2+ and intact throughout ABD: Abd is soft, nontender, nondistended EXT: No obvious deformity SKIN: No rashes or lesions observed on exposed skin. NEURO: Alert and oriented x 4. No focal sensory or strength deficits. Limitations: no limitations Course Vital Signs 04/23/24 04/23/24 04/23/24 16:03 17:03 18:24 Temperature 97.6 F Pulse Rate 65 72 69 Respiratory 16 18 18 Rate Blood Pressure 207/91 208/114 173/83 O2 Sat by Pulse 97 98 97 Oximetry 04/23/24 19:29 Temperature Pulse Rate 69 Respiratory 18 Rate Blood Pressure 184/98 O2 Sat by Pulse 97 Oximetry Medical Decision Making - Medical Decision Making Was pt. sent in by a medical professional or institution (, PA, STONE RUBBER, urgent care, hospital, or [facility]...) When possible be specific @ -Sent from wood and wood products labourer for evaluation of hypertension. Did you speak to anyone other than the patient for history (EMS, parent, family, police, friend...)? What history was obtained from this source @ -No Did you review nursing and triage notes (agree or disagree)? Why? @ -I reviewed and agree with nursing and triage notes Were old charts reviewed (outside hosp., previous admission, EMS record, old EKG, old radiological studies, urgent care reports/EKG's, [facility] records)? Report findings @ -No old charts were reviewed Differential Diagnosis (chest pain, altered mental status, abdominal pain women, abdominal pain men, vaginal bleeding, weakness, fever, dyspnea, syncope, headache, dizziness, GI bleed, back pain, seizure, CVA, palpatations, mental health, musculoskeletal)? @ -Hypertension, CKD, intracranial injury, this list is not all inclusive EKG interpreted by me (3pts min.). @ -As above X-rays interpreted by me (1pt min.). @ -Chest x-ray reveals no obvious acute cardiopulmonary process per CT interpreted by me (1pt min.). @ -CT brain reveals no obvious acute intracranial process. U/S interpreted by me (1pt. min.). @ -None done What testing was considered but not performed or refused? (CT, X-rays, U/S, tony bs)? Why? @ -None What meds were considered but not given or refused? Why? @ -None Did you discuss the management of the patient with other professionals (professionals i.e. , PA, STONE RU[employer]ER, lab, RT, psych nurse, 7th grade social studies teacher, hole digger, teacher, ordnance corps officer, complex case manager)? Give summary @ -No Was smoking cessation discussed for >3mins.? @ -No Was critical care preformed (if so, how long)? @ -No Were there social determinants of health that impacted care today? How? (Homelessness, low income, unemployed, alcoholism, drug addiction, transportation, low edu. Level, literacy, decrease access to med. care, alf, rehab)? @ -No Was there de-escalation of care discussed even if they declined (Discuss DNR or withdrawal of care, Hospice)? DNR status @ -No What co-morbidities impacted this encounter? (DM, HTN, Smoking, COPD, CAD, Cancer, CVA, ARF, Chemo, Hep., AIDS, mental health diagnosis, sleep apnea, morbid obesity)? @ -Hypertension Was patient admitted / discharged? Hospital course, mention meds given and route, prescriptions, significant lab abnormalities, going to OR and other pertinent info. @ -Patient presents emergency department over concern for hypertension. Appears to be asymptomatic hypertension at this time. She has not missed any doses of her blood pressure medications. She will be given a dose of IV hydralazine, and we will obtain general workup with chest x-ray, EKG, basic labs, as well as a CT of the brain due to her dizziness earlier. She was in agreement this plan. Exam unremarkable at this time. EKG showed no signs of acute ischemia. Imaging unremarkable. Laboratory studies are remarkable for negative viral swabs. Urine is still pending. I discussed results with the patient. Blood pressure is improved. I recommended she continue to monitor blood pressure at home. She will be given a short term prescription for Norvasc. She was in agreement this plan. She does have close follow-up with her PCP on Friday. Strict return precautions discussed. I will provide the patient with a prescription for Norvasc. I instructed the patient to follow up with their PCP in the next 1-3 days.. I explained that the patient should return to the emergency department if they experience any worsening symptoms. Strict return precautions were discussed with the patient. The patient expressed understanding of these instructions. I answered all questions that the patient had. The patient was discharged home in good condition with their prescriptions and follow up information. Following discharge, patient's urinalysis did return positive for possible early UTI considering she has white cells, bacteria as well as leukocyte esterase. This could explain why she was having hypotensive episode as well. Patient will be started on an antibiotic. I attempted to contact her via phone call however I was only able to leave a voicemail stating that antibiotic was sent to her pharmacy and to call back the ER if needed. Recommend she complete the course of antibiotics.Prescription for Keflex sent by myself. Undiagnosed new problem with uncertain prognosis? @ -No Drug Therapy requiring intensive monitoring for toxicity (Heparin, Nitro, Insulin, Cardizem)? @ -No Were any procedures done? @ -No Diagnosis/symptom? @ -Asymptomatic hypertension, UTI Acute, or Chronic, or Acute on Chronic? @ -Acute Uncomplicated (without systemic symptoms) or Complicated (systemic symptoms)? @ -Complicated Side effects of treatment? @ -No Exacerbation, Progression, or Severe Exacerbation? @ -No Poses a threat to life or bodily function? How? (Chest pain, [place], [place], pneumonia, PE, COPD, DKA, ARF, appy, cholecystitis, CVA, Diverticulitis, Homicidal, Suicidal, threat to staff... and all critical care pts) @ -Unlikely at this time - Lab Data Result diagrams: 04/23/24 17:09 04/23/24 17:09 Lab Results 04/23/24 04/23/24 04/23/24 Range/Units 17:09 17:09 17:09 WBC 5.7 (3.8-10.6) k/uL RBC 3.67 L (3.80-5.40) m/uL Hgb 11.9 (11.4-16.0) gm/dL Hct 34.6 (34.0-46.0) % MCV 94.3 (80.0-100.0) fL MCH 32.4 (25.0-35.0) pg MCHC 34.3 (31.0-37.0) g/dL RDW 16.0 H (11.5-15.5) % Plt Count 315 (150-450) k/uL MPV 7.2 Neutrophils % 70 % Lymphocytes % 21 % Monocytes % 6 % Eosinophils % 2 % Basophils % 0 % Neutrophils # 4.0 (1.3-7.7) k/uL Lymphocytes # 1.2 (1.0-4.8) k/uL Monocytes # 0.3 (0-1.0) k/uL Eosinophils # 0.1 (0-0.7) k/uL Basophils # 0.0 (0-0.2) k/uL Sodium 137 (137-145) mmol/L Potassium 4.0 (3.5-5.1) mmol/L Chloride 103 (98-107) mmol/L Carbon Dioxide 28 (22-30) mmol/L Anion Gap 6 mmol/L BUN 21 H (7-17) mg/dL Creatinine 0.77 (0.52-1.04) mg/dL Est GFR (CKD-EPI)AfAm 83 (>60 ml/min/1.73 sqM) Est GFR (CKD-EPI)NonAf 72 (>60 ml/min/1.73 sqM) Glucose 92 (74-99) mg/dL Calcium 9.7 (8.4-10.2) mg/dL Magnesium 1.7 (1.6-2.3) mg/dL Total Bilirubin 0.3 (0.2-1.3) mg/dL AST 27 (14-36) U/L ALT 15 (4-34) U/L Alkaline Phosphatase 35 L (38-126) U/L Total Protein 6.3 (6.3-8.2) g/dL Albumin 4.3 (3.5-5.0) g/dL Urine Color Colorless Urine Appearance Clear (Clear) Urine pH 7.0 (5.0-8.0) Ur Specific [place] 1.003 (1.001-1.035) Urine Protein Negative (Negative) Urine Glucose (UA) Negative (Negative) Urine Ketones Negative (Negative) Urine Blood Negative (Negative) Urine Nitrite Negative (Negative) Urine Bilirubin Negative (Negative) Urine Urobilinogen <2.0 (<2.0) mg/dL Ur Leukocyte Esterase Large H (Negative) Urine RBC 1 (0-5) /hpf Urine WBC 20 H (0-5) /hpf Ur Squamous Epith Cells <1 (0-4) /hpf Urine Bacteria Occasional H (None) /hpf Influenza Type A (PCR) (Not Detectd) Influenza Type B (PCR) (Not Detectd) RSV (PCR) (Not Detectd) SARS-CoV-2 (PCR) (Not Detectd) 04/23/24 Range/Units 17:09 WBC (3.8-10.6) k/uL RBC (3.80-5.40) m/uL Hgb (11.4-16.0) gm/dL Hct (34.0-46.0) % MCV (80.0-100.0) fL MCH (25.0-35.0) pg MCHC (31.0-37.0) g/dL RDW (11.5-15.5) % Plt Count (150-450) k/uL MPV Neutrophils % % Lymphocytes % % Monocytes % % Eosinophils % % Basophils % % Neutrophils # (1.3-7.7) k/uL Lymphocytes # (1.0-4.8) k/uL Monocytes # (0-1.0) k/uL Eosinophils # (0-0.7) k/uL Basophils # (0-0.2) k/uL Sodium (137-145) mmol/L Potassium (3.5-5.1) mmol/L Chloride (98-107) mmol/L Carbon Dioxide (22-30) mmol/L Anion Gap mmol/L BUN (7-17) mg/dL Creatinine (0.52-1.04) mg/dL Est GFR (CKD-EPI)AfAm (>60 ml/min/1.73 sqM) Est GFR (CKD-EPI)NonAf (>60 ml/min/1.73 sqM) Glucose (74-99) mg/dL Calcium (8.4-10.2) mg/dL Magnesium (1.6-2.3) mg/dL Total Bilirubin (0.2-1.3) mg/dL AST (14-36) U/L ALT (4-34) U/L Alkaline Phosphatase (38-126) U/L Total Protein (6.3-8.2) g/dL Albumin (3.5-5.0) g/dL Urine Color Urine Appearance (Clear) Urine pH (5.0-8.0) Ur Specific [place] (1.001-1.035) Urine Protein (Negative) Urine Glucose (UA) (Negative) Urine Ketones (Negative) Urine Blood (Negative) Urine Nitrite (Negative) Urine Bilirubin (Negative) Urine Urobilinogen (<2.0) mg/dL Ur Leukocyte Esterase (Negative) Urine RBC (0-5) /hpf Urine WBC (0-5) /hpf Ur Squamous Epith Cells (0-4) /hpf Urine Bacteria (None) /hpf Influenza Type A (PCR) Not Detected (Not Detectd) Influenza Type B (PCR) Not Detected (Not Detectd) RSV (PCR) Not Detected (Not Detectd) SARS-CoV-2 (PCR) Not Detected (Not Detectd) - EKG Data -: EKG Interpreted by Me EKG Comments: 12-lead Electrocardiogram Interpretation Note EKG was reviewed and interpreted by myself. 12-lead ECG performed at 1622 is interpreted by me as revealing normal sinus rhythm at a rate of 64 beats per minute. [place] is normal. [place] interval is 160 ms, QRS duration is 89 ms, QTc is 431 ms.. There were no ST or T wave abnormalities to suggest myocardial ischemia or injury. R wave progression across the precordium was satisfactory. By my interpretation this EKG is non-diagnostic for acute ischemia. Disposition Clinical Impression: Asymptomatic hypertension, UTI (urinary tract infection) Disposition: HOME SELF-CARE Condition: Good Instructions (If sedation given, give patient instructions): Hypertension (ED) Additional Instructions: Follow-up with your PCP in the next 1 to 3 days regarding your blood pressure. Continue to monitor daily. Keep a log of your blood pressure levels. Take the Norvasc tablet as needed for systolic blood pressures over 185 or diastolic pressures over 110. Return to the emergency department if worsening symptoms. Prescriptions: Cephalexin [Keflex] 500 mg PO Q12HR 5 Days #10 cap amLODIPine [Norvasc] 2.5 mg PO DAILY PRN 7 Days #7 tablet PRN Reason: Blood Pressure - High Is patient prescribed a controlled substance at d/c from ED?: No Referrals: Fadi Minaya MD [Primary Care Provider] - 1-2 days Time of Disposition: 19:15
[2024-04-23 19:30] VITALS: BP 184/98
== END 2024-04-23 19:37 | disposition home or self-care (01) ==
LOC: EC 15:57
DX: I10 Essential (primary) hypertension (principal); N39.0 Urinary tract infection, site not specified; Z88.2 Allergy status to sulfonamides; Z88.5 Allergy status to narcotic agent; Z88.8 Allergy status to other drugs, medicaments and biological substances
CPT/HCPCS: 36415; 93005; 80053; 83735; 85025; 81001; 87636; 71046; 70450; 99285; 96374; 96361; J0360

== ENCOUNTER 2024-11-03 20:13 | Emergency (ER) | payer MEDICARE, BC ==
[2024-11-03] MEDS: traMADol 50 MG TAB PO STA (21:11)
[2024-11-03] MEDS: FAMOTIDINE 20 MG TAB PO STA (21:11)
[2024-11-03] MEDS: IBUPROFEN 600 MG TAB PO STA (21:12)
--- NOTE | 2024-11-03 21:21 | ED ---
General Adult HPI - General Chief complaint: Fall Stated complaint: Fall Time Seen by Provider: 11/03/24 20:34 Source: patient Mode of arrival: wheelchair Limitations: no limitations - History of Present Illness Initial comments: Patient is an 84-year-old female no significant past medical history presenting for evaluation after a ground-level trip and fall sustaining left knee injury. Went to a local urgent care who directed her to come to the ER. This happened around 4:30 PM. She was able to ambulate afterwards. States she tripped over her own feet or her walker. She does not think she lost consciousness but her family tells her she may have. She takes a baby aspirin daily no other blood thinners. She is most concerned for large knee contusion and persistent pain. She is able to ambulate with her walker. She has tried Tylenol and icing her knee without much improvement. Also sustained a bruise to the bridge of her nose. She denies changes to vision, numbness, weakness, headache or dizziness. Has chronic neck pain but denies new neck pain. Denies chest or abdominal pain. No nausea or vomiting. Endorse associated left hip pain denies additional injuries. - Related Data Home Medications Medication Instructions Recorded Confirmed Aspirin 81 mg PO HS 01/12/14 04/23/24 Fenofibrate [Lofibra] 160 mg PO DAILY 01/12/14 04/23/24 Omeprazole 20 mg PO DAILY 07/06/17 04/23/24 Dicyclomine [Bentyl] 10 mg PO HS 05/21/18 04/23/24 Metoprolol Succinate (ER) [Toprol 25 mg PO HS 05/21/18 04/23/24 XL] Cholecalciferol (Vitamin D3) 50 mcg PO DAILY 04/23/24 04/23/24 [Vitamin D3 (50 Mcg = 2000 Iu)] DULoxetine HCL [Cymbalta] 30 mg PO HS 04/23/24 04/23/24 Hydrocortisone Pr Cream 1 applic RECTAL BID 04/23/24 04/23/24 [Proctosol-Hc 2.5%] Losartan Potassium [Cozaar] 100 mg PO DAILY 04/23/24 04/23/24 Multivit-Min/Iron/Folic/Lutein 1 tab PO DAILY 04/23/24 04/23/24 [Centrum Silver Women Tablet] Niacin 500 mg PO DAILY 04/23/24 04/23/24 Oyster Shell Calcium 500mg 1 tab PO DAILY 04/23/24 04/23/24 Rosuvastatin [Crestor] 20 mg PO HS 04/23/24 04/23/24 Previous Rx's Medication Instructions Recorded Cephalexin [Keflex] 500 mg PO Q12HR 5 Days #10 cap 04/23/24 amLODIPine [Norvasc] 2.5 mg PO DAILY PRN 7 Days #7 04/23/24 tablet Allergies Allergy/AdvReac Type Severity Reaction Status Date / Time gabapentin [From Neurontin] Allergy Confusion Verified 11/03/24 20:29 Sulfa (Sulfonamide Allergy Rash/Hives Verified 11/03/24 20:29 Antibiotics) codeine AdvReac Nausea Verified 11/03/24 20:29 adhesive micropore tape AdvReac blisters Uncoded 11/03/24 20:29 Review of Systems ROS Statement: Those systems with pertinent positive or pertinent negative responses have been documented in the HPI. ROS Other: All systems not noted in ROS Statement are negative. Past Medical History Past Medical History: GERD/Reflux, Hearing Disorder / Deafness, Hyperlipidemia, Hypertension Additional Past Medical History / Comment(s): occ palpitations, diverticulosis, hx. anemia History of Any Multi-Drug Resistant Organisms: None Reported Past Surgical History: Appendectomy, Back Surgery, Breast Surgery, Cholecystectomy, Hysterectomy, Tonsillectomy Additional Past Surgical History / Comment(s): lysis of adhesion, detached retina left eye, breast benign tumor, cataracts removed Past Anesthesia/Blood Transfusion Reactions: Previous Problems w/ Anesthesia, Motion Sickness Additional Past Anesthesia/Blood Transfusion Reaction / Comment(s): diff waking up, limitations in turning head to the left -pt states has had general anesthesia and no diff intubation Past Psychological History: Anxiety Smoking Status: Former smoker Past Alcohol Use History: Occasional Past Drug Use History: None Reported - Past Family History Mother Family Medical History: Cancer Brother(s) Family Medical History: Deep Vein Thrombosis (DVT) General Exam - General Exam Comments Initial Comments: PE: CONSTITUTIONAL: No apparent distress, well appearing SKIN: Warm, dry, no jaundice, hives or petechiae, bruising to the nasal bridge, bruising around the EYES: Pupils are equally round, extraocular movements intact without nystagmus, clear conjunctiva, non-icteric sclera HENT: Normocephalic, contusion to the nasal bridge with mild swelling, moist mucus membranes, oropharynx clear without exudates, no hemotympanum, no midline spinal tenderness to palpation extraocular movements intact without pain NECK: , Full range of motion, normal appearance, no midline spinal tenderness palpation PULMONARY: Clear to auscultation without wheezes, rhonchi, or rales, normal excursion, no accessory muscle use and no stridor CARDIOVASCULAR: Regular rate, rhythm, normal S1 and S2. No appreciated murmurs, rubs or gallops. Strong radial pulses with intact distal perfusion. No lower extremity edema GASTROINTESTINAL: Soft, active bowel sounds throughout, non-tender, non- distended, no palpable masses, no rebound or guarding. No hepatosplenomegaly MUSCULOSKELETAL: Large hematoma around left knee with associated swelling and tenderness to palpation, tenderness to palpation of the lateral left hip without bruising or deformity, patient is able to flex the left hip as well as flex and extend at the left knee to approx 130 degrees, remainder of extremity atraumatic, neurovascularly intact, no TTP left ankle orfoot, remaining extremities have no gross deformity, no edema, redness, or swelling. NEUROLOGIC:_a/o x 3, GCS 15, normal mentation and speech. Moves all extremities x 4 without motor or sensory deficit PSYCHIATRIC:_normal mood and affect, thought process is clear and linear Limitations: no limitations Course Vital Signs 11/03/24 11/03/24 11/03/24 20:30 22:21 23:51 Temperature 97.9 F 98.0 F Pulse Rate 78 86 81 Respiratory 16 18 17 Rate Blood Pressure 121/73 174/88 146/79 O2 Sat by Pulse 96 97 97 Oximetry Medical Decision Making - Medical Decision Making Was pt. sent in by a medical professional or institution (, PA, RN ADMIT, urgent care, hospital, or detention...) When possible be specific @ -No Did you speak to anyone other than the patient for history (EMS, parent, family, police, friend...)? What history was obtained from this source @ -No Did you review nursing and triage notes (agree or disagree)? Why? @ -I reviewed nursing and triage notes Were old charts reviewed (outside hosp., previous admission, EMS record, old EKG, old radiological studies, urgent care reports/EKG's, detention records)? Report findings @ -Medical records reviewed-Reviewed CT brain from 04/23/2024, showed no acute process at that time, no prominence on presence of pineal gland cyst Differential Diagnosis (chest pain, altered mental status, abdominal pain women, abdominal pain men, vaginal bleeding, weakness, fever, dyspnea, syncope, headache, dizziness, GI bleed, back pain, seizure, CVA, palpatations, mental health, musculoskeletal)? @Differential Musculoskeletal Muscular strain, contusion, ligament sprain, fracture, arthritis, septic arth ritis, bursitis, cellulitis, muscle spasm, nerve compression, DVT, arterial occlusion, herpes zoster, electrolyte abnormality, tumor.... This is not meant to be in all inclusive list EKG interpreted by me (3pts min.). @ -As above X-rays interpreted by me (1pt min.). @Personally reviewed x-ray hips, pelvis, left femur, knee and tib-fib, I see no evidence of fracture or dislocation I agree with radiologist interpretation CT interpreted by me (1pt min.). Reviewed CT brain I see no evidence of hemorrhage or skull fracture, reviewed CT C-spine I see no evidence of malalignment, reviewed CT's face I see no evidence of fracture agree with radiologist interpretation U/S interpreted by me (1pt. min.). @ -None done What testing was considered but not performed or refused? (CT, X-rays, U/S, labs)? Why? @ -None What meds were considered but not given or refused? Why? @ -None Did you discuss the management of the patient with other professionals (professionals i.e. , PA, RN ADMIT, lab, RT, psych nurse, rn social services, gaming floor supervisor, teacher, protocol officer, caseworker intake)? Give summary @ -No Was smoking cessation discussed for >3mins.? @ -No Was critical care preformed (if so, how long)? @ -No Were there social determinants of health that impacted care today? How? (Homelessness, low income, unemployed, alcoholism, drug addiction, transportation, low edu. Level, literacy, decrease access to med. care, shelter, rehab)? @ -No Was there de-escalation of care discussed even if they declined (Discuss DNR or withdrawal of care, Hospice)? @ -No What co-morbidities impacted this encounter? (DM, HTN, Smoking, COPD, CAD, Cancer, CVA, ARF, Chemo, Hep., AIDS, mental health diagnosis, sleep apnea, morbid obesity)? @ -None Was patient admitted / discharged? Hospital course, mention meds given and route, prescriptions, significant lab abnormalities, going to OR and other pertinent info. @Tlsiqipaaq-27-nfby-old female presenting for left knee injury sustained after a ground-level trip and fall. Vital signs stable on arrival. Exam significant for contusion over left nasal bridge, large hematoma surrounding the left knee tenderness with patient left hip and left knee. Will obtain plain films as well as CT brain, C-spine and face due to facial injury and patient's age. Patient will receive pain medications anticipate discharge. Imaging reviewed. Grossly within normal limits. Abnormal values not concerning for acute pathology related to presenting complaint. On reassessment patient endorsed improvement of pain. Discussed with her CT findings including incidental finding of pineal cyst. We discussed signs symptoms to monitor for warranting return to the ER , such as uncontrolled pain or inability to ambulate due to pain. Patient will be sent home with starter pack of tramadol and was instructed to use Tylenol and Motrin as needed. Patient was comfortable with plan for discharge. In my medical judgment there is currently no evidence of an immediate life- threatening or surgical condition. Discharge is therefore indicated at this time. Discharge treatment instructions, follow up instructions, and appropriate emergency department return precautions were discussed with the patient and/or medical decision maker. Patient and/or medical decision maker expressed understanding of and agreed with the treatment plan, follow up instructions, and emergency department return precaution. All patient's and/or medical decision maker's questions were answered. The patient was instructed to return to the ED for any changes in symptoms, persistent symptoms, inability to obtain proper follow-up or for any further concerns. Patient received verbal and written instructions for this condition. Undiagnosed new problem with uncertain prognosis? @ -No Drug Therapy requiring intensive monitoring for toxicity (Heparin, Nitro, Insulin, Cardizem)? @ -No Were any procedures done? @ -No Diagnosis/symptom? Contusion of left knee, fall Acute, or Chronic, or Acute on Chronic? @Acute Uncomplicated (without systemic symptoms) or Complicated (systemic symptoms)? @Uncomplicated Side effects of treatment? @ -No Exacerbation, Progression, or Severe Exacerbation? @ -No Poses a threat to life or bodily function? How? (Chest pain, [place], [place], pneumonia, PE, COPD, DKA, ARF, appy, cholecystitis, CVA, Diverticulitis, Homicidal, Suicidal, threat to staff... and all critical care pts) @ -No Disposition Clinical Impression: Fall, Pineal gland cyst, Contusion Disposition: HOME SELF-CARE Condition: Good Instructions (If sedation given, give patient instructions): Fall Prevention for Older Adults (ED), Contusion in Adults (ED) Additional Instructions: Every disease is a spectrum and a small chance still exists that a serious condition could develop, for this reason, please monitor yourself closely for new, changing or worsening symptoms, uncontrolled pain, inability to bear weight on your affected extremity due to pain, new numbness in your affected extremity, new onset headaches with nausea, vomiting or dizziness, fever, inability to tolerate/keep down fluids or your medications, inability to follow up with outpatient providers as instructed and should you experience these symptoms or should you have any further concerns for your wellbeing please return to the ED or call 911 immediately. Your pain can be treated with ibuprofen and acetaminophen. You can take up to 400-600 mg of ibuprofen (Advil, Motrin) 3 times daily (every 8 hours) but can also use lower doses if this relieves your pain. Some people prefer naproxen (Aleve, Naprosyn) which can be taken in doses of 500 mg up to twice a day. Do not take both of these medicines together, and do not combine either with ketorolac (Toradol), meloxicam (Mobic), or indomethacin (Tivorbex). Some people can develop stomach discomfort with higher doses of either ibuprofen or naproxen, if this develops decrease your dose or stop taking it. If you need to take this dose daily for more than a week, please schedule an appointment for re-evaluation with your PCP. Please take these medications with food. You can take up to 1000 mg of acetaminophen (Tylenol) every 6 hours. Be careful as this is included in some medicines like Nyquil, Startex, Percocet, Vicodin, STANBACK, Goody's Powders, and Excedrin. You can also use lidocaine patches for topical pain. You can purchase 4% patches over the counter at most drug stores. These can be helpful for pain from your muscles or bones. Please ice and elevate your affected extremity every 3-4 hours for 20 minutes. PLEASE call your primary care physician as soon as possible to arrange / discuss plan for followup appointment. Appointment in the next 1-3 days is strongly encouraged if possible. PLEASE let us know here before you leave if there is anything further we can do to be of any assistance. Take care and feel Better! Is patient prescribed a controlled substance at d/c from ED?: No Referrals: Bettina Box, [Primary Care Provider] - 1-2 days
--- NOTE | 2024-11-03 21:50 | CT ---
EXAMINATION TYPE: CT brain cspine wo con, CT facial bones wo con DATE OF EXAM: 11/03/2024 9:38 PM COMPARISON: 04/23/2024. CLINICAL INDICATION: Female, 84 years old with history of fall, facial trauma, unsure LOC; Pt present s after a Fall. Pt tripped in her bedroom and landed on her left knee and struck her face on the corn er of her bed. Incident happened at 1630, denies LOC, takes 81 ASA. there is bruising to left knee a nd right eye., pain TECHNIQUE: Brain: Multiple axial CT images of the brain were obtained without IV contrast. Cspine: Axial CT images from the skull base to the inferior aspect of T2 we obtained without intraven ous contrast. Coronal and sagittal reformatted images were also reviewed. . CT DLP: 1031.3 combined mGycm, Automated exposure control for dose reduction was used. FINDINGS: Brain: Extra-axial spaces: No abnormal extra-axial fluid collections. Ventricular system: Within normal limits Cerebral parenchyma: Pineal gland and 13 mm cyst. No acute intraparenchymal hemorrhage or mass effect . The bernardo-white junction is well differentiated. Cerebellum: Unremarkable. Mass effect: No evidence of midline shift. Intracranial vasculature: unremarkable Soft tissues: Right forehead scalp edema. Calvarium/osseous structures: No depressed skull fracture. Paranasal sinuses and mastoid air cells: Clear. Visualized orbits: Scleral band around the left globe. Bilateral aphakia. Cervical spine: Fracture: None. Osseous structures: Multilevel degenerative disc disease changes with endplate spurring and disc oste ophyte complex's. Vertebral alignment: Anterolisthesis of C4 on C5 retrolisthesis of C5 on C6. Spinal canal/Neural Foramina: No evidence of significant spinal canal narrowing. No evidence for sign ificant neural foraminal stenosis. Neck soft tissues: Prevertebral soft tissues are within normal limits. Other: The airway is patent. The lung apices are clear. Facial: There is no evidence of fracture, subluxation, or dislocation. There is soft tissue swelling over the right forehead/edema. The orbital contents are unremarkable.The temporal-mandibular joints a ppear symmetric. The visualized portion of the paranasal sinuses appear clear. IMPRESSION: 1. No acute intracranial process. 2. Right forehead scalp edema without evidence of fracture. 3. Nonspecific white matter changes, likely secondary to chronic small vessel ischemic disease. 4. No evidence of cervical spine fracture. 5. 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 Moderate multilevel degenerative disc disease. 7. No evidence of facial bone fracture. [facility], , 11/03/2024 9:48 PM
--- NOTE | 2024-11-03 23:29 | XR ---
EXAM: XR Left Tibia and Fibula, 2 Views CLINICAL HISTORY: ITS.[email or web address] XR Reason: fall large hematoma pain left knee TECHNIQUE: Frontal and lateral views of the left tibia and fibula. COMPARISON: No relevant prior studies available. FINDINGS: Bones/joints: No acute fracture or malalignment. Soft tissues: Soft tissue edema around the knee, proximal tibia, and at the ankle laterally. No radiopaque foreign body. IMPRESSION: 1. No acute fracture or malalignment. 2. Soft tissue edema around the knee, proximal tibia, and at the ankle laterally.
--- NOTE | 2024-11-03 23:30 | XR ---
EXAM: XR Left Femur, 2 Views CLINICAL HISTORY: ITS.REASON XR Reason: fall, left hip pain TECHNIQUE: Frontal and lateral views of the left femur. COMPARISON: No relevant prior studies available. FINDINGS: Bones/joints: No acute fracture or malalignment. Soft tissues: Soft tissue edema circumferentially about the knee. IMPRESSION: 1. No acute fracture or malalignment. 2. Soft tissue edema circumferentially about the knee.
--- NOTE | 2024-11-03 23:32 | XR ---
EXAM: XR Left Knee, 3 Views CLINICAL HISTORY: ITS.REASON XR Reason: fall, large hematoma to left knee TECHNIQUE: Three views of the left knee. COMPARISON: No relevant prior studies available. FINDINGS: Bones/joints: No acute fracture or malalignment. No joint effusion. Joint spaces are preserved. Soft tissues: Extensive soft tissue edema circumferentially about the knee. IMPRESSION: 1. No acute fracture or malalignment. 2. Extensive soft tissue edema circumferentially about the knee.
--- NOTE | 2024-11-03 23:32 | XR ---
EXAM: XR Bilateral Hips With Pelvis When Performed, 4 or More Views CLINICAL HISTORY: [email or web address].REASON XR Reason: fall, left hip pain TECHNIQUE: Four or more views of the bilateral hips with pelvis when performed. COMPARISON: No relevant prior studies available. FINDINGS: Bones/joints: No acute fracture or malalignment. IMPRESSION: No acute fracture or malalignment.
[2024-11-03] MEDS: traMADol 50 MG STARTER PACK 3 TAB BTL PO STA (23:37)
[2024-11-03 23:53] VITALS: BP 146/79; PULSE 81; RESP 17; TEMP 98
== END 2024-11-03 23:53 | disposition home or self-care (01) ==
LOC: EC 20:13
DX: S80.02XA Contusion of left knee, initial encounter (principal); E34.8 Other specified endocrine disorders; Z79.82 Long term (current) use of aspirin; Z87.891 Personal history of nicotine dependence; Z88.2 Allergy status to sulfonamides; Z88.5 Allergy status to narcotic agent; Z91.09 Other allergy status, other than to drugs and biological substances; Z88.8 Allergy status to other drugs, medicaments and biological substances; W01.190A Fall on same level from slipping, tripping and stumbling with subsequent striking against furniture, initial encounter
CPT/HCPCS: 70450; 70486; 72125; 73521; 99284